=== PATIENT | female | born 1935 | race Hispanic/Latino ===

== ENCOUNTER 2016-12-18 13:57 | Observation (INO) | payer MEDICARE, OTHER ==
--- NOTE | 2016-12-18 14:43 | ED PDOC ---
Arrival/HPI - General Historian: Patient - History of Present Illness Time/Duration: Other (4 days ) Symptom Onset: Sudden Symptom Course: Worsening Quality: Burning Severity Level: Moderate <Darlene Wang - Last Filed: 12/18/16 16:57> <KristalDianelys - Last Filed: 12/18/16 17:51> - General Chief Complaint: Upper Extremity Problem/Injury Time Seen by Provider: 12/18/16 14:17 - History of Present Illness Narrative History of Present Illness (Text): 12/18/16 14:38 Patient is an 81 y/o with pmh of htn, hypothyroidism, falls, neuropathy and carpal tunnel syndrome presenting with right hand pain and swelling. Patient states she had carpal tunnel syndrome of the right hand for years, on Friday she noticed the right hand was swollen, she decided to wrap it with warm castor oil compress, and she fell asleep. Then the next morning she noticed the swelling of the right hand got worst, and it was burning. Patient called PMD, and was prescribed cefadroxil. Patient states she took the antibiotic for 2 days with no improvement thus she decided to come to the ED. Patient didn't try any pain meds at home. Patient otherwise denies cp, sob, n/v/d. (Darlene Wang) Past Medical History - Provider Review Nursing Documentation Reviewed: Yes - Travel History Have you recently traveled outside [place] w/in the past 3 mons?: No - Infectious Disease Hx of Infectious Diseases: None - Tetanus Immunization Tetanus Immunization: Unknown - Cardiac Hx Cardiac Disorders: Yes (CAD,NC,PALPITATIONS) Hx Cardiac Arrhythmia: Yes - Pulmonary Hx Respiratory Disorders: Yes Hx Asthma: Yes Hx Pneumonia: Yes - Neurological Hx Neurological Disorder: Yes (NEUROPATHY) - HEENT Hx HEENT Disorder: Yes (WEARS RX GLASSES) Hx Cataracts: Yes (WITH SURGERY) - Renal Hx Renal Disorder: No - Endocrine/Metabolic Hx Endocrine Disorders: Yes Hx Hypothyroidism: Yes - Hematological/Oncological Hx Blood Disorders: No - Integumentary Hx Dermatological Disorder: No - Musculoskeletal/Rheumatological Hx Musculoskeletal Disorders: Yes Hx Falls: Yes (LAST FALL THIS YR JUL 2013) - Gastrointestinal Hx Gastrointestinal Disorders: Yes Hx Gastrointestinal Ulcer: Yes - Genitourinary/Gynecological Hx Genitourinary Disorders: Yes (URINARY FREQUENCY, X1) Hx Urinary Tract Infection: Yes - Psychiatric Hx Psychophysiologic Disorder: Yes Hx Depression: Yes Hx Emotional Abuse: No Hx Physical Abuse: No Hx Substance Use: No - Surgical History Hx Appendectomy: Yes Hx Cardiac Catheterization: Yes - Anesthesia Hx Anesthesia: Yes Hx Anesthesia Reactions: No Hx Malignant Hyperthermia: No - Suicidal Assessment Feels Threatened In Home Enviroment: No <Darlene Wang - Last Filed: 12/18/16 16:57> Family/Social History - Physician Review Nursing Documentation Reviewed: Yes Family/Social History: No Known Family HX Smoking Status: Never Smoked Hx Alcohol Use: No Hx Substance Use: No Hx Substance Use Treatment: No <Darlene Wang - Last Filed: 12/18/16 16:57> Allergies/Home Meds <Darlene Wang - Last Filed: 12/18/16 16:57> <Dianelys Giraldo - Last Filed: 12/18/16 17:51> Allergies/Adverse Reactions: Allergies diltiazem Allergy (Verified 12/18/16 14:15) ANAPHYLAXIS metoprolol Allergy (Verified 12/18/16 14:15) ANAPHYLAXIS Home Medications: Home Meds Medication Instructions Recorded Confirmed Levothyroxine Sodium 0.075 mg PO DAILY 02/19/12 12/18/16 [Levothyroxine] Aspirin [Aspirin Chewable] 81 mg PO DAILY 12/18/16 12/18/16 Cefadroxil [Duricef] 500 mg PO BID 12/18/16 12/18/16 Review of Systems - Review of Systems Constitutional: Normal Eyes: Normal ENT: Normal Respiratory: Normal Cardiovascular: Normal Gastrointestinal: Normal Genitourinary Female: Normal Musculoskeletal: Other (right hand pain, and burning. ) Skin: Rash Neurological: Normal Endocrine: Normal Hemo/Lymphatic: Normal Psychiatric: Normal <Darlene Wang - Last Filed: 12/18/16 16:57> Physical Exam Vital Signs Reviewed: Yes Temperature: Afebrile Blood Pressure: Normal Pulse: Regular Respiratory Rate: Normal Appearance: Positive for: Well-Appearing, Non-Toxic, Comfortable Pain Distress: None Mental Status: Positive for: Alert and Oriented X 3 - Systems Exam Head: Present: Atraumatic, Normocephalic Conjunctiva: No: Icteric Mouth: Present: Moist Mucous Membranes Neck: Present: Normal Range of Motion Respiratory/Chest: Present: Clear to Auscultation, Good Air Exchange. No: Respiratory Distress, Accessory Muscle Use, Wheezes, Rales, Rhonchi, Tachypneic Cardiovascular: Present: Regular Rate and Rhythm, Normal S1, S2. No: Murmurs, Peripheal Pulses Present, Tachycardic, Bradycardic, Rub, Gallop Abdomen: Present: Normal Bowel Sounds. No: Tenderness, Distention Upper Extremity: Present: Edema (of the right hand, mostly on the dorsal apsect of the hand. ), Tenderness (right hand), Swelling (right hand), Neurovascularly Intact, Capillary Refill < 2s. No: Erythema (mild) Lower Extremity: Present: Normal Inspection. No: Edema Neurological: Present: GCS=15 Skin: Present: Warm, Dry, Rashes, Normal Color Psychiatric: Present: Alert, Oriented x 3, Normal Insight, Normal Concentration <Darlene Wang - Last Filed: 12/18/16 16:57> Medical Decision Making Re-evaluation Time: 16:50 Reassessment Condition: Re-examined, Improving,but remains with symptoms - Lab Interpretations I have reviewed the lab results: Yes <Darlene Wang - Last Filed: 12/18/16 16:57> <Dianelys Giraldo - Last Filed: 12/18/16 17:51> ED Course and Treatment: 12/18/16 14:47 Patient is an 81 y/o with pmh of htn, hypothyroidism presenting with right hand tenderness, and edema. Differentials: gout versus cellulites versus trauma versus pseudogout. Plan: cbc, cmp, bcx, uric acid. Stat dose po prednisone, Discussed with Dr giraldo. 12/18/16 16:57 Right hand x-ray with no fractures. Dr giraldo spoke to Dov Nino, patient is to be admitted with right hand cellulites, and IV antibiotics. (Darlene Wang) Patient Seen With Resident: In agreement with resident note. Patient was seen and evaluated with resident, came up with plan and treatment together. An 81 year old female with right hand pain and swelling. Additional HPI as noted by resident. On physical exam, patient has right hand tenderness, swelling , and edema (mostly dorsal aspect), no mild erythema and neurovascularly intact. Ordered radiology of right hand and labs. Vitaliy give patient prednisone. 12/18/16 17:48 Patient with noted swelling with warmth and erythema with differential of cellulitis vs. gout; no evidence of burn. Patient with no history of gout, and already on duracef, concern is that patient has hand cellulitis that is worsening and not responding to oral antibioitics. Will start iv antibiotics and observe further in the hospital. Discussed with Dr. Rinku Lopez. (Dianelys Giraldo) - Lab Interpretations Lab Results: 12/18/16 14:50 12/18/16 14:50 Lab Results 12/18/16 14:50: Sodium 131 L, Potassium 4.8, Chloride 99, Carbon Dioxide 27, Anion Gap 10, BUN 25 H, Creatinine 0.6, Est GFR ( Amer) > 60, Est GFR ( Non-Af Amer) > 60, Random Glucose 98, Uric Acid 4.5, Calcium 9.9, Total Bilirubin 0.9, AST 78 H, ALT 90 H, Alkaline Phosphatase 78, Total Protein 6.6, Albumin 3.8, Globulin 2.8, Albumin/Globulin Ratio 1.4 12/18/16 14:50: WBC 5.6 D, RBC 4.07, Hgb 12.8, Hct 36.6, MCV 89.9, MCH 31.4, MCHC 35.0, RDW 12.8, Plt Count 107 L, MPV 10.2, Gran % 73.1 H, Lymph % (Auto) 11.1 L, Laurel % (Auto) 12.3 H, Eos % (Auto) 3.0, Baso % (Auto) 0.5, Gran # 4.08, Lymph # 0.6 L, Laurel # 0.7 H, Eos # 0.2, Baso # 0.03, ESR 26 H - RAD Interpretation Radiology Orders: 12/18/16 15:01 HAND RIGHT 3 VIEWS [RAD] Stat 12/18/16 16:55 CHEST PORTABLE [RAD] Stat - Medication Orders Current Medication Orders: Vancomycin HCl 1 gm/ Sodium (Chloride) 250 mls @ 133.333 mls/hr IV STAT STA PRN Reason: Protocol Stop: 12/18/16 18:40 Discontinued Medications Colchicine (Colocrys) 0.6 mg PO ONCE STA Stop: 12/18/16 16:19 Last Admin: 12/18/16 16:51 Dose: 0.6 mg Ampicillin Sodium/Sulbactam (Sodium 3 gm/ Sodium Chloride) 100 mls @ 100 mls/ hr IVPB STAT STA PRN Reason: Protocol Stop: 12/18/16 17:47 Last Admin: 12/18/16 17:33 Dose: 100 mls/hr Prednisone (Prednisone Tab) 40 mg PO STAT STA Stop: 12/18/16 14:36 Last Admin: 12/18/16 15:06 Dose: 40 mg <Darlene Wang - Last Filed: 12/18/16 16:57> - Scribe Statement The provider has reviewed the documentation as recorded by the Scribe <Dianelys Giraldo - Last Filed: 12/18/16 17:51> - Scribe Statement Go Rivera All medical record entries made by the Scribe were at my direction and personally dictated by me. I have reviewed the chart and agree that the record accurately reflects my personal performance of the history, physical exam, medical decision making, and the department course for this patient. I have also personally directed, reviewed, and agree with the discharge instructions and disposition. (Dianelys Giraldo) Disposition/Present on Arrival - Present on Arrival Any Indicators Present on Arrival: No History of DVT/PE: No History of Uncontrolled Diabetes: No Urinary Catheter: No History of Decub. Ulcer: No History Surgical Site Infection Following: None - Disposition Have Diagnosis and Disposition been Completed?: Yes Disposition Time: 17:00 Patient Plan: Observation <Darlene Wang - Last Filed: 12/18/16 16:57> - Disposition Disposition Time: 16:45 <Dianelys Giraldo - Last Filed: 12/18/16 17:51> - Disposition Diagnosis: Cellulitis of right hand Disposition: HOSPITALIZED Patient Problems: Current Active Problems Problem Status Onset Cellulitis of right hand Acute Condition: STABLE Discharge Instructions (ExitCare): Cellulitis (ED) Referrals: Dov Lopez MD [Primary Care Provider] - Follow up with primary
[2016-12-18 14:58] VITALS: BMI 17.9
[2016-12-18 15:06] LABS: ADD MANUAL DIFF? NO
[2016-12-18 15:12] LABS: BASO # 0.03 K/mm3 (0.0-2.0); BASO % 0.5 % (0.0-3.0); EOS # 0.2 (0.0-0.7); GRAN # 4.08 (1.4-6.5); GRAN % 73.1 % (50.0-68.0); HEMATOCRIT 36.6 % (36.0-48.0); LYMPH # 0.6 (1.2-3.4); LYMPH % 11.1 % (22.0-35.0); MEAN CELL VOLUME 89.9 fL (80.0-105.0); MEAN CORPUSCULAR HEMOGLOBIN 31.4 pg (25.0-35.0); MEAN PLATELET VOLUME 10.2 fl (7.0-11.0); MONO # 0.7 (0.1-0.6); MONO % 12.3 % (1.0-6.0); PLATELET COUNT 107 10^3/uL (120.0-450.0); RED CELL DISTRIBUTION WIDTH 12.8 % (11.5-14.5); WHITE BLOOD COUNT 5.6 10^3/ul (4.5-11.0)
[2016-12-18 15:21] LABS: ALB/GLOB RATIO 1.4 (1.1-1.8); ALKALINE PHOSPHATASE 78 U/L (38-133); ALT/SGPT 90 U/L (7-56); AST/SGOT 78 U/L (15-39); BILIRUBIN,TOTAL 0.9 mg/dL (0.2-1.3); BLOOD UREA NITROGEN 25 mg/dL (7-21); CALCIUM 9.9 mg/dL (8.4-10.5); CARBON DIOXIDE 27 mmol/L (21-33); CHLORIDE 99 mmol/L (98-107); GFR AFRICAN-AMERICAN > 60; GLUCOSE,RANDOM 98 mg/dL (70-110); POTASSIUM 4.8 mmol/L (3.6-5.0); SODIUM 131 mmol/L (132-148); TOTAL PROTEIN 6.6 g/dL (5.8-8.3); URIC ACID 4.5 mg/dL (2.5-6.2)
--- NOTE | 2016-12-18 16:01 | RAD ---
PROCEDURE: Right Hand Radiographs. HISTORY: Right hand pain and swelling COMPARISON: None. FINDINGS: BONES: There is no acute displaced fracture or bone destruction. Bone alignment is normal. 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 There is calcification in the triangular fibrocartilage with SOFT TISSUES: Normal. OTHER FINDINGS: None. IMPRESSION: No acute displaced fracture or dislocation.
[2016-12-18 16:16] LABS: ERYTHROCYTE SEDIMENTATION RATE 26 mm/hr (0.0-20.0)
[2016-12-18] MEDS ORDERED: Ampicillin/Sulbactam 3 GM in Sodium Chloride 0.9% 100 ML IVPB STA (16:48)
--- NOTE | 2016-12-19 10:11 | RAD ---
HISTORY: hand cellulitis COMPARISON: 03/09/2014 FINDINGS: LUNGS: The lungs are clear. PLEURA: No significant pleural effusion identified, no pneumothorax apparent. CARDIOVASCULAR: The heart is normal in size. OSSEOUS STRUCTURES: No significant abnormalities. VISUALIZED UPPER ABDOMEN: Normal. OTHER FINDINGS: None. IMPRESSION: No active pulmonary disease.
[2016-12-19] MEDS: Levothyroxine 75 MCG TAB PO SCH (10:29)
[2016-12-19] MEDS: ceFAZolin 1 gm in NS 1 GM/100 ML BAG IVPB SCH ×3 (10:56→21:53)
--- NOTE | 2016-12-19 13:46 | HP ---
CHIEF COMPLAINT: Swelling, pain and redness of the right hand. HISTORY OF PRESENT ILLNESS: This is an 81-year-old woman who complained that, approximately a week a go, her right hand started to bother her. She was treating it conservatively and the other day, appl ied a castor oil poultice to the hand. She meant to leave it on for only a few minutes, but fell asl eep and awoke the next morning. The hand was red and markedly swollen. She cared for it conservativ tesha at home, called her physician, Dr. Rinku Ivey, and was started on antibiotics. She took a few doses of antibiotics, but the redness and pain and swelling did not improve, so she presented to the Emergency Room where she was treated and evaluated. It was determined that this was clinically high ly suspicious of cellulitis and the patient was admitted to medical floor after antibiotics were star ariel. PAST MEDICAL HISTORY: Significant for hypothyroidism. No history of hypertension, diabetes, cholest michele, tuberculosis, asthma, seizures, coronary artery disease, new stroke, TIAs or cancers of any typ e. CURRENT MEDICATIONS: Include levothyroxine 75 mcg daily and baby aspirin 81 mg daily. SOCIAL HISTORY: She does not smoke, does not drink alcohol. REVIEW OF SYSTEMS: Otherwise unremarkable except for some minor arthritis symptoms, but negative for any dysuria symptoms or rheumatism or gout. PHYSICAL EXAMINATION: GENERAL: The patient was seen this morning, 12/19/2016, in room 374, bed 1. She was lying in bed, comfortable, and resting. HEAD AND NECK: Unremarkable. Conjunctivae pink. Mucous membranes moist. NECK: Supple without masses. Thyroid is not palpable. CHEST: Clear. HEART: Regular, nontachycardic. ABDOMEN: Soft. EXTREMITIES: Lower extremities show no swelling or edema. Dorsalis pedis and posterior tibial pulse s are present. On examination of the right upper extremity, the hand is markedly swollen and puffy. It is warm to touch and erythematous. She can flex the wrist without significant pain. IMPRESSION: 1. Cellulitis of the right, but must also consider just a chemical burn from castor oil versus aller gic reaction versus unrelated or rheumatologic etiology such as gout or acute tenosynovitis. 2. Hypothyroidism. 3. Daily aspirin use. PLAN: Because the white count is normal, I will check with infectious disease analytical consultant, start her on Ancef 1 gram q. 8 and see what the infectious disease analytical consultant has to say and also would use ant ibiotics overnight, reassess the situation in the morning. We will get morning labs, perhaps also ch lenka a sed rate and recheck the uric acid level. If the patient is deemed clinically well, stable, af ebrile, she may be ready for discharge as early as tomorrow morning, but that decision will have to b e determined at that time. Naresh Lopez MD cc: [id number] TT: 12/19/2016 13:45:39 tn
--- NOTE | 2016-12-19 22:38 | CON ---
DATE: 12/19/2016 The patient is in room 374, bed 1. Seen earlier today. The patient's son at the bedside. CHIEF COMPLAINT: Right wrist pain times several weeks. HISTORY OF PRESENT ILLNESS: This is an 81-year-old female with past medical history of hypothyroidism, hypertension, falls, neuropathy, carpal tunnel syndrome, cataract, who has had cataract surgery in the past. SHE IS ALLERGIC TO DILTIAZEM AND METOPROLOL. She was admitted with a diagnosis of a cellulitis of the hand. Infectious disease consultation requested. REVIEW OF SYSTEMS: The patient states that she has had the pain in her wrist for some time. She denies any trauma. No nausea or vomiting. No fevers and chills. No chest pain. PAST MEDICAL HISTORY: Significant for hypertension, hypothyroidism, a fall, neuropathy, carpal tunnel syndrome, and cataracts. PAST SURGICAL HISTORY: Significant for cataract surgery. ALLERGIES: THE PATIENT IS ALLERGIC TO DILTIAZEM AND METOPROLOL. MEDICATIONS AT HOME: Include levothyroxine and aspirin. PHYSICAL EXAMINATION: GENERAL: The patient is in bed with a temperature of 98. The patient appears much older than her stated age. She appears chronically ill, cachectic. VITAL SIGNS: Pulse of 57, blood pressure is 160/90, respiratory rate of 20. HEENT: Unremarkable. NECK: Supple. LUNGS: Have decreased breath sounds. HEART: Normal S1, S2. ABDOMEN: Soft, nontender. EXTREMITIES: Examination of the right wrist, there is obvious swelling, and it is tender; however, she is able to extend and flex her wrist joint. There is mild erythema of the wrist area, but no discharge and no break in the skin. LABORATORY EXAMINATION: Reveals a white count of 5.6, hemoglobin of 12. The platelets are low at 107, with a sed rate of 26. Chemistries reveal a BUN of 25 , creatinine of 0.6, AST 78, ALT is 90. C-reactive protein is greater than 15. Sodium is low at 131. The patient had a chest x-ray which was negative. Right hand x-ray, there were no fractures. History and physical examination by Dr. Evan Lopez is reviewed. The Emergency Room chart is reviewed. ASSESSMENT AND PLAN: This is an 81-year-old female with hypertension, hypothyroidism, falls, neuropathy, carpal tunnel syndrome, who was admitted with right wrist pain. Must rule out a right septic joint, although it does not appear toxic versus vasculitis, and patient does have low platelets. Thrombocytopenia, etiology of which is not clear. Recommend a heme evaluation for the low platelets. Repeat a CBC in a.m., blood cultures, urinalysis, urine culture. Will order GEOFF screen with titers and uric acid for possible gouty arthritis and marrero culture. Will also order a CAT scan of the right wrist to rule out any fluid in the wrist joint and start the patient empirically on vancomycin and ceftriaxone pending initial workup and results. recommnd ortho eval. Will follow closely with you. Barak Schofield MD cc: 350 TT: 12/19/2016 22:38:27 Confirmation # [id number] Dictation # [id number] dn MTDD
[2016-12-19] MEDS: Vancomycin 750mg 750 MG/250 ML BAG IVPB SCH (23:50)
--- NOTE | 2016-12-20 00:01 | CARD ---
APPROVED REPORT EKG Measurement Heart [id number] <Conclusion> Sinus bradycardia with 1st degree AV block Left ventricular hypertrophy with QRS widening T wave abnormality, consider inferior ischemia T wave abnormality, consider anterolateral ischemia Abnormal ECG
[2016-12-20 07:32] LABS: ADD MANUAL DIFF? NO
[2016-12-20 07:35] LABS: BASO # 0.04 K/mm3 (0.0-2.0); BASO % 1.3 % (0.0-3.0); EOS # 0.2 (0.0-0.7); EOS % 7.6 % (1.5-5.0); GRAN % 47.7 % (50.0-68.0); HEMATOCRIT 35.7 % (36.0-48.0); LYMPH # 1.1 (1.2-3.4); LYMPH % 33.8 % (22.0-35.0); MEAN CELL VOLUME 88.4 fL (80.0-105.0); MEAN CORPUSCULAR HEMOGLOBIN 30.4 pg (25.0-35.0); MEAN CORPUSCULAR HGB CONC 34.5 g/dl (31.0-37.0); MEAN PLATELET VOLUME 10.5 fl (7.0-11.0); MONO # 0.3 (0.1-0.6); MONO % 9.6 % (1.0-6.0); PLATELET COUNT 121 10^3/uL (120.0-450.0); RED CELL DISTRIBUTION WIDTH 12.5 % (11.5-14.5); WHITE BLOOD COUNT 3.1 10^3/ul (4.5-11.0)
[2016-12-20 07:54] LABS: BLOOD UREA NITROGEN 21 mg/dL (7-21); CARBON DIOXIDE 26 mmol/L (21-33); CHLORIDE 103 mmol/L (95-110); GFR AFRICAN-AMERICAN > 60; GLUCOSE,RANDOM 75 mg/dL (70-110); POTASSIUM 3.6 mmol/L (3.6-5.0); SODIUM 134 mmol/L (132-148); URIC ACID 4.2 mg/dL (2.5-6.2)
[2016-12-20] MEDS: Levothyroxine 75 MCG TAB PO SCH (08:40)
[2016-12-20] MEDS ORDERED: cefTRIAXone 1 gm 1 GM/100 ML BAG IVPB ONE (10:10)
--- NOTE | 2016-12-20 10:12 | PN ---
DATE: 12/20/2016 The patient is in bed, in no acute distress, nontoxic. PHYSICAL EXAMINATION: VITAL SIGNS: Temperature is 98, blood pressure is 120/70, respiratory rate of 18, heart rate of 60. HEENT: Unremarkable. NECK: Supple. LUNGS: Have decreased breath sounds. HEART: Normal S1, S2. ABDOMEN: Soft, nontender. LABORATORY DATA: Reveals the patient to have a white count of 3.1, hemoglobin of 12, platelets of 12 1 and a BUN of 21, creatinine of 0.5. C-reactive protein is greater than 15. Microbiology: Blood c ultures are negative. Chest x-ray: Lungs are clear. ASSESSMENT AND PLAN: An 81-year-old female with hypertension, hypothyroidism, history of falls, hist ory of neuropathy, carpal tunnel syndrome, admitted with a right wrist pain. I doubt septic joint. Currently on vancomycin and Rocephin. Awaiting for a CAT scan of the wrist. Recommend an orthopedic evaluation. Lyme serology cultures pending. The patient's platelet count this morning is 121; it w as 107. She does have an elevated C-reactive protein. Will follow with you. Barak Schofield MD cc: 350 TT: 12/20/2016 09:39:36 Confirmation # [id number] Dictation # [id number] mn
[2016-12-20] MEDS: cefTRIAXone 1 gm 1 GM/100 ML BAG IVPB SCH (10:17)
[2016-12-20] MEDS: Vancomycin 750mg 750 MG/250 ML BAG IVPB SCH ×2 (10:17→21:44)
--- NOTE | 2016-12-20 10:25 | CT ---
PROCEDURE: HISTORY: r/o right wrist joint fluid COMPARISON: None TECHNIQUE: Noncontrast radiation dose of 117 FINDINGS: Severe degenerative changes of the carpus is noted with joint space narrowing and marginal spur formation with fragmentation and spur formation. There is chondrocalcinosis of the main disc of the triangular fibrocartilage complex. No discrete fracture is observed. There is a small carpal joint effusion. The visualized tendons are grossly unremarkable. IMPRESSION: Markedly severe degenerative changes with chondrocalcinosis. Small joint effusion.
[2016-12-21 04:34] LABS: LYME DISEASE SCREEN <0.90 index
[2016-12-21] MEDS: Levothyroxine 75 MCG TAB PO SCH (08:12)
[2016-12-21] MEDS: cefTRIAXone 1 gm 1 GM/100 ML BAG IVPB SCH (10:02)
[2016-12-21] MEDS: Vancomycin 750mg 750 MG/250 ML BAG IVPB SCH (10:18)
--- NOTE | 2016-12-21 18:05 | PN ---
DATE: 12/21/2016 The patient is in bed in no acute distress, nontoxic. The patient states her wrist is much improved and she is doing much better. PHYSICAL EXAMINATION: VITAL SIGNS: Temperature is 98, blood pressure is 160/90, respiratory rate of 16. HEENT: Unremarkable. NECK: Supple. LUNGS: Have decreased breath sounds. HEART: Normal S1, S2. ABDOMEN: Soft, nontender. LABORATORY DATA: Reveals a white count is 3.1, hemoglobin of 12 and platelets of 121, Sed rate is 2 6. Chemistries are noted. C-reactive protein is greater than 15. Lyme serology is negative. Hepat itis profile is negative. Microbiology reveals her urine culture and blood cultures are negative. T he patient's CAT scan of the arm: Severe degenerative changes with chondrocalcinosis and a small eff usion is noted. Review of orders revealed the patient to be on ceftriaxone and vancomycin. ASSESSMENT AND PLAN: An 81-year-old female with hypertension, hypothyroidism, history of falls, hist ory of neuropathy, carpal tunnel syndrome, admitted with right wrist pain, negative CAT scan and cult ures negative. Lyme serology and hepatitis serology are negative. We will discontinue the IV vancom ycin and on ceftriaxone. Complete with p.o. doxycycline, although the Lyme screen is negative, 100 m g of doxycycline p.o. b.i.d. x 3 days. Barak Schofield MD cc: 350 TT: 12/21/2016 18:04:21 Confirmation # [id number] Dictation # [id number] mn
[2016-12-22] MEDS: Levothyroxine 75 MCG TAB PO SCH (07:30)
[2016-12-22 09:06] VITALS: BP 159/82; PULSE 54; RESP 17; TEMP 97.7; O2SAT 96
--- NOTE | 2016-12-22 13:19 | PN ---
DATE: 12/22/2016 The patient is in bed, in no acute distress, nontoxic. PHYSICAL EXAMINATION: VITAL SIGNS: Temperature is 97, blood pressure is 150/80, respiratory rate of 16. HEENT: Unremarkable. NECK: Supple. LUNGS: Have decreased breath sounds. HEART: Normal S1, S2. ABDOMEN: Soft, nontender. LABORATORY EXAMINATION: Reveals a white count of 3.1, hemoglobin of 12, platelets of 121. The chemi stries reveals a BUN of 21, creatinine of 0.5. Serology is noted. Microbiology reveals the blood cu ltures are negative, urine cultures are negative and upper extremity ultrasound is noted. ASSESSMENT AND PLAN: An 81-year-old female with hypertension, hypothyroidism, history of falls, hist ory of neuropathy, carpal tunnel syndrome. Admitted with right wrist pain and Lyme serology is negat jeremy. Currently on p.o. doxycycline. Would complete 100 mg p.o. b.i.d. for 2 more days. The patient was seen earlier, doing well. Barak Schofield MD cc: 350 TT: 12/22/2016 13:18:14 Confirmation # [id number] Dictation # [id number]
== END 2016-12-22 15:04 | disposition home or self-care (01) ==
LOC: ED 13:57 → ERH 16:49 → 3RSO 20:04
PROVIDERS: ADMIT Internal Medicine; ATTEND Internal Medicine
DX: L03.113 Cellulitis of right upper limb (principal); G56.01 Carpal tunnel syndrome, right upper limb; I10 Essential (primary) hypertension; E03.9 Hypothyroidism, unspecified; D69.6 Thrombocytopenia, unspecified; R79.82 Elevated C-reactive protein (CRP); G62.9 Polyneuropathy, unspecified; Z91.81 History of falling; Z79.82 Long term (current) use of aspirin
CPT/HCPCS: 36415; 71010; 73130; 73200; 80048; 80053; 80074; 84550; 85025; 85651; 86039; 86140; 86618; 87040; 87086; 93005; 96365; 96366; 96367; 96368; 96375; 96376; 97116; 97161; 99285; G0378; G8978; G8979; J0295; J0690; J0696

== ENCOUNTER 2017-03-24 12:24 | Emergency (ER) | payer MEDICARE, OTHER ==
[2017-03-24 12:35] VITALS: BMI 17.9
[2017-03-24 12:49] VITALS: TEMP 98.7
--- NOTE | 2017-03-24 13:14 | ED PDOC ---
Arrival/HPI <Gualberto Ghotra - Last Filed: 03/24/17 15:33> - General Historian: Patient EM Caveat: Acuity of Condition - History of Present Illness Time/Duration: 1-3 hours Symptom Course: Unchanged Quality: Aching Severity Level: 4 Context: Walking, Slipped <MARI PINEDA - Last Filed: 03/24/17 22:05> - General Chief Complaint: Trauma - History of Present Illness Narrative History of Present Illness (Text): 03/24/17 13:07 81yo F PMH prior falls, SD (1985), Hypothyroid, LE numbness/cold and colon polyps who presents to ED BIBA s/p mechanical fall at around 10AM this morning. Pt states she was walking in the kitchen and she fell over on her R side and hit her eye/head on the ground. Pt has a Rolling Walker and a cane that she should be using but she doesn't. Pt has had unsteady gait for a few years and has had multiple falls with admissions to rehab facilities, and does complain of weakness. Pt denies dizziness, LOC, chest pain, cough, n/v or urinary/stool incontinence. Pt has a necklace monitor to call 911 in case of falls, however, she did not use it and instead got off the floors after a few minutes and dialed 911 herself. Son also came and helped, but he doesn't live with her. PMD: Dr. Dov Lopez PSH: appendectomy, c/s x1 Meds: as per AUG SHx: lives alone, denies tobacco, ETOH or substance use FHx: non-contributory 03/24/17 13:15 (MARI PINEDA) Past Medical History <Gualberto Ghotra - Last Filed: 03/24/17 15:33> - Provider Review Nursing Documentation Reviewed: Yes - Infectious Disease Hx of Infectious Diseases: None - Tetanus Immunization Tetanus Immunization: Unknown - Cardiac Hx Cardiac Disorders: Yes ([place], PALPITATIONS) - Pulmonary Hx Respiratory Disorders: Yes Hx Asthma: Yes Hx Pneumonia: Yes - Neurological Hx Neurological Disorder: Yes (NEUROPATHY) - HEENT Hx HEENT Disorder: Yes Hx Cataracts: Yes (2011 BILATERAL SURGERY) - Renal Hx Renal Disorder: Yes Hx Kidney Stones: Yes (LEFT KIDNEY STONES) - Endocrine/Metabolic Hx Hypothyroidism: Yes - Hematological/Oncological Hx Blood Disorders: Yes Hx Anemia: Yes Hx Cancer: Yes (COLON CA 30YEARS AGO) Hx Chemotherapy: No - Integumentary Hx Dermatological Disorder: No - Musculoskeletal/Rheumatological Hx Musculoskeletal Disorders: Yes Hx Back Pain: Yes (DISLOCATED VERTEBRAE LOWER BACK) Hx Falls: Yes Hx Unsteady Gait: Yes - Gastrointestinal Hx Gastrointestinal Disorders: Yes - Genitourinary/Gynecological Hx Genitourinary Disorders: Yes Hx Urinary Tract Infection: Yes - Psychiatric Hx Psychophysiologic Disorder: Yes Hx Anxiety: Yes Hx Depression: Yes Hx Substance Use: No - Surgical History Hx Appendectomy: Yes Hx Cardiac Catheterization: No (DENIES) Hx Section: Yes - Anesthesia Hx Anesthesia: Yes Hx Anesthesia Reactions: No Hx Malignant Hyperthermia: No - Suicidal Assessment Feels Threatened In Home Enviroment: No <MARI PINEDA - Last Filed: 03/24/17 22:05> - Patient History Narrative Patient History: prior hx of falls (MARI PINEDA) Family/Social History - Physician Review Nursing Documentation Reviewed: Yes Family/Social History: No Known Family HX Smoking Status: Never Smoked Hx Alcohol Use: No Hx Substance Use: No Hx Substance Use Treatment: No <MARI PINEDA - Last Filed: 03/24/17 22:05> Allergies/Home Meds <Gualberto Ghotra - Last Filed: 03/24/17 15:33> <MARI PINEDA - Last Filed: 03/24/17 22:05> Allergies/Adverse Reactions: Allergies diltiazem Allergy (Verified 12/18/16 14:15) ANAPHYLAXIS metoprolol Allergy (Verified 12/18/16 14:15) ANAPHYLAXIS Home Medications: Home Meds Medication Instructions Recorded Confirmed Levothyroxine Sodium 0.075 mg PO DAILY 02/19/12 03/24/17 Aspirin [Aspirin Chewable] 81 mg PO QOTHERDAY 12/18/16 03/24/17 Gabapentin [Neurontin] 1 cap PO BID 03/24/17 03/24/17 Review of Systems - Physician Review All systems were reviewed & negative as marked: Yes - Review of Systems Respiratory: Normal Cardiovascular: Normal Gastrointestinal: Normal Musculoskeletal: Other (abnormal gait). absent: Back Pain, Neck Pain, Myalgias Neurological: absent: Headache, Dizziness, Focal Weakness, Facial Droop, Seizure <MARI PINEDA - Last Filed: 03/24/17 22:05> Physical Exam Vital Signs Reviewed: Yes Appearance: Positive for: Well-Appearing, Comfortable Pain Distress: None Mental Status: Positive for: Alert and Oriented X 3 - Systems Exam Head: Present: Tenderness (supra-optical ), Contusion (above R eye), Ecchymosis (above R eye). No: Abrasion, Laceration Pupils: Present: PERRL Extroacular Muscles: Present: EOMI Conjunctiva: Present: Normal Mouth: Present: Moist Mucous Membranes Nose (External): Present: Atraumatic Nose (Internal): Present: Normal Inspection, No Active Bleeding. No: Septal Deviation Neck: Present: Normal Range of Motion. No: MIDLINE TENDERNESS, Paraspinal Tenderness Respiratory/Chest: Present: Clear to Auscultation, Good Air Exchange. No: Wheezes Cardiovascular: Present: Regular Rate and Rhythm, Normal S1, S2 Abdomen: No: Tenderness, Distention Back: Present: Normal Inspection. No: Midline Tenderness, Pain with Leg Raise Upper Extremity: Present: Normal Inspection, Normal ROM, NORMAL PULSES. No: Tenderness Lower Extremity: Present: Normal Inspection, Normal ROM. No: Edema <MARI PINEDA - Last Filed: 03/24/17 22:05> Vital Signs Temp Pulse Resp BP Pulse Ox 03/24/17 16:07 56 L 12 157/75 H 98 03/24/17 15:31 52 L 18 177/88 H 99 03/24/17 12:38 98.7 F 60 19 112/72 99 Medical Decision Making - RAD Interpretation Handstitching Machine Armhole Feller: ED Physician <Gualberto Ghotra - Last Filed: 03/24/17 15:33> <MARI PINEDA - Last Filed: 03/24/17 22:05> ED Course and Treatment: Patient Seen With Resident: In agreement with resident note which contains more details about the patient. Patient was seen and evaluated with resident. Came up with plan and treatment together. 03/24/17 13:37 Seen and examined with the resident. Our history and physical exam reveals an elderly woman who suffered a mechanical fall at home in her kitchen with a right forehead injury. No loss of consciousness syncope dizziness lightheadedness numbness tingling or paresthesias. No nausea or vomiting. No neck pain. No extremity trauma. No chest pain palpitations or dyspnea. There is ecchymosis and swelling of the right eyebrow. Extraocular muscles intact. Pupils equal round reactive to light. No infraorbital rim tenderness swelling or ecchymosis. 03/24/17 14:17 Patient was getting ready for discharge, and complained of right sided anterior chest pain when she touched it. She does have some mild tenderness to palpation on her anterior upper ribs. No swelling. No crepitus. No ecchymosis. Rib and chest x-ray has been ordered. (Gualberto Ghotra) 03/24/17 13:25 Impression: 81yo F PMH falls presents with R eye contusion s/p mechanical fall Differential Diagnosis included but are not limited to: Head trauma Plan: -- Reassess and disposition - CT Head w/o contrast Progress Notes: 03/24/2017 13:52:42 CT Head w/o contrast Creator : Cole Crystal MD IMPRESSION: No acute intracranial hemorrhage. Significant confluent white matter basal nuclei and suspected chronic brainstem ischemic changes. . Moderate volume loss. Right facial soft tissue swelling as outlined above. Mucoperiosteal inflammatory changes within the maxillary ethmoid and sphenoid sinuses. Sclerotic underpneumatized appearance of the right mastoid air complex with opacification of several right-sided inferior mastoid air cells. Pt to be d/c with son, and recommended to continue rest, ice and pain management with tylenol PRN (MARI PINEDA) - RAD Interpretation Radiology Orders: 03/24/17 13:03 HEAD W/O CONTRAST [CT] Stat 03/24/17 14:16 RIBS RIGHT & PA CHEST [RAD] Stat RIBS and chest one view show no infiltrate effusion cardiomegaly pneumothorax fracture or dislocation (Gualberto Ghotra) Disposition/Present on Arrival <Gualberto Ghotra - Last Filed: 03/24/17 15:33> - Present on Arrival Any Indicators Present on Arrival: No History of DVT/PE: No History of Uncontrolled Diabetes: No Urinary Catheter: No History of Decub. Ulcer: No History Surgical Site Infection Following: None - Disposition Have Diagnosis and Disposition been Completed?: Yes Disposition Time: 14:09 <MARI PINEDA - Last Filed: 03/24/17 22:05> - Disposition Diagnosis: Fall Disposition: HOME/ ROUTINE Condition: IMPROVED Additional Instructions: d/c to home continue to rest and use ice pack on your R eye take motrin or tylenol as needed for pain Referrals: Dov Lopez MD [Primary Care Provider] - Follow up with primary Forms: [employer] (Kyrgyz)
--- NOTE | 2017-03-24 13:54 | CT ---
PROCEDURE: Comparison made with CT scan brain dated 03/09/2014 HISTORY: s/p fall COMPARISON: Comparison made with CT scan of the brain 03/09/2014. TECHNIQUE: Axial computed tomography images were obtained through the head/brain without intravenous contrast. Radiation dose: Total exam DLP = 677.45 mGy-cm. This CT exam was performed using one or more of the following dose reduction techniques: Automated exposure control, adjustment of the mA and/or kV according to patient size, and/or use of iterative reconstruction technique. FINDINGS: HEMORRHAGE: No intracranial hemorrhage. BRAIN: Significant diffuse/confluent chronic white matter ischemic changes seen extending peripherally into the deep and subcortical white matter both cerebral hemispheres. . There is extension of these changes into white matter tracts of both basal nuclei. Multiple more discrete deep and subcortical white matter as well as bilateral basal nuclei lacunar type infarcts also felt present. . Suspected chronic brainstem ischemic changes on prior study less well seen on this exam. Moderate generalized volume loss. Mild vascular calcifications both carotid siphons VENTRICLES: No obstructive hydrocephalus CALVARIUM: No acute calvarial fractures. Right periorbital soft tissue swelling that extends medially over bridge of the nose and glabella region as well as laterally over the lateral orbital rim and over proximal aspect right zygomatic arch. . Swelling extends superiorly into the supraorbital and frontal scalp region. PARANASAL SINUSES: Mucoperiosteal inflammatory changes are seen within the maxillary, and to a lesser degree ethmoid and sphenoid sinus. MASTOID AIR CELLS: Right mastoid air complex is underpneumatized slightly sclerotic compared to the left side. There also appears be partial opacification of multiple right-sided inferior mastoid air cells. OTHER FINDINGS: Changes of bilateral cataract surgery. IMPRESSION: No acute intracranial hemorrhage. Significant confluent white matter basal nuclei and suspected chronic brainstem ischemic changes. . Moderate volume loss. Right facial soft tissue swelling as outlined above. Mucoperiosteal inflammatory changes within the maxillary ethmoid and sphenoid sinuses. Sclerotic underpneumatized appearance of the right mastoid air complex with opacification of several right-sided inferior mastoid air cells.
[2017-03-24 16:08] VITALS: BP 157/75; PULSE 56; RESP 12; O2SAT 98
--- NOTE | 2017-03-24 16:52 | RAD ---
PROCEDURE: Chest x-ray and right rib series dated 03/24/2017 HISTORY: Trauma COMPARISON: Comparison made with chest radiograph 12/18/2016 TECHNIQUE: Frontal radiograph of the chest and multiple oblique radiographs of the right ribs were obtained. FINDINGS: RIGHT RIBS: Suspect fracture right posterolateral 5th rib LUNGS: No focal consolidation. PLEURA: No evidence of obvious pneumothorax. No pleural effusion CARDIOVASCULAR: Heart appears borderline/mildly enlarged OTHER FINDINGS: None. IMPRESSION: There appears to be a fracture of the right posterolateral 5th rib. No definitive evidence of pneumothorax Followup CT scan could be performed for further evaluation necessary
== END 2017-03-24 16:07 | disposition home or self-care (01) ==
LOC: ED 12:24
DX: Z04.3 Encounter for examination and observation following other accident (principal); W01.0XXA Fall on same level from slipping, tripping and stumbling without subsequent striking against object, initial encounter; Y93.01 Activity, walking, marching and hiking; Y92.000 Kitchen of unspecified non-institutional (private) residence as the place of occurrence of the external cause

== ENCOUNTER 2018-08-28 20:39 | Emergency (ER) | payer MEDICARE ==
[2018-08-28 20:39] VITALS: BMI 17.9
--- NOTE | 2018-08-28 21:31 | ED PDOC ---
Arrival/HPI <Parveen Rendon - Last Filed: 08/29/18 00:21> - General Historian: Patient - History of Present Illness Narrative History of Present Illness (Text): 08/28/18 21:31 Kaila Negron is an 83 year old female, whose past medical history includes hypothyroidism, hypertension, and neuropathy, who presents to the Emergency department complaining of left lower leg swelling with associated pain for 1 week. Patient denies any trauma/injury, chest pain, shortness of breath, fever, or any other complaints. <Galilea Norton PA-C - Last Filed: 08/29/18 01:57> - General Chief Complaint: Lower Extremity Problem/Injury Time Seen by Provider: 08/28/18 20:45 Past Medical History - Provider Review Nursing Documentation Reviewed: Yes - Infectious Disease Hx of Infectious Diseases: None - Tetanus Immunization Tetanus Immunization: Unknown - Cardiac Hx Cardiac Disorders: Yes ([place], PALPITATIONS) - Pulmonary Hx Respiratory Disorders: Yes Hx Asthma: Yes Hx Pneumonia: Yes - Neurological Hx Neurological Disorder: Yes (NEUROPATHY) - HEENT Hx HEENT Disorder: Yes Hx Cataracts: Yes (2012 BILATERAL SURGERY) - Renal Hx Renal Disorder: Yes Hx Kidney Stones: Yes (LEFT KIDNEY STONES) - Endocrine/Metabolic Hx Hypothyroidism: Yes - Hematological/Oncological Hx Blood Disorders: Yes Hx Anemia: Yes Hx Cancer: Yes (COLON CA 30YEARS AGO) Hx Chemotherapy: No - Integumentary Hx Dermatological Disorder: No - Musculoskeletal/Rheumatological Hx Musculoskeletal Disorders: Yes Hx Back Pain: Yes (DISLOCATED VERTEBRAE LOWER BACK) Hx Falls: Yes Hx Unsteady Gait: Yes - Gastrointestinal Hx Gastrointestinal Disorders: Yes - Genitourinary/Gynecological Hx Genitourinary Disorders: Yes Hx Urinary Tract Infection: Yes - Psychiatric Hx Psychophysiologic Disorder: Yes Hx Anxiety: Yes Hx Depression: Yes Hx Substance Use: No - Surgical History Hx Appendectomy: Yes Hx Cardiac Catheterization: No (DENIES) Hx Section: Yes - Anesthesia Hx Anesthesia: Yes Hx Anesthesia Reactions: No Hx Malignant Hyperthermia: No - Suicidal Assessment Feels Threatened In Home Enviroment: No <Galilea Norton PA-C - Last Filed: 08/29/18 01:57> Family/Social History - Physician Review Nursing Documentation Reviewed: Yes Family/Social History: Unknown Family HX Smoking Status: Never Smoked Hx Alcohol Use: No Hx Substance Use: No Hx Substance Use Treatment: No <Galilea Norton PA-C - Last Filed: 08/29/18 01:57> Allergies/Home Meds <Parveen Rendon - Last Filed: 08/29/18 00:21> <Galilea Norton PA-C - Last Filed: 08/29/18 01:57> Allergies/Adverse Reactions: Allergies diltiazem Allergy (Verified 08/28/18 20:51) ANAPHYLAXIS metoprolol Allergy (Verified 08/28/18 20:51) ANAPHYLAXIS Home Medications: Home Meds Medication Instructions Recorded Confirmed Levothyroxine Sodium 0.075 mg PO DAILY 02/19/12 03/24/17 Aspirin [Aspirin Chewable] 81 mg PO QOTHERDAY 12/18/16 03/24/17 Gabapentin [Neurontin] 1 cap PO BID 03/24/17 03/24/17 Review of Systems - Physician Review All systems were reviewed & negative as marked: Yes - Review of Systems Constitutional: Normal. absent: Fevers Eyes: Normal ENT: Normal Respiratory: Normal. absent: SOB, Cough Cardiovascular: Calf Pain (+left calf swelling). absent: Chest Pain Gastrointestinal: Normal. absent: Abdominal Pain, Diarrhea, Nausea, Vomiting Genitourinary Female: Normal. absent: Dysuria, Frequency, Hematuria, Urine Output Changes Musculoskeletal: Normal. absent: Back Pain, Neck Pain Skin: Normal. absent: Rash Neurological: Normal. absent: Headache, Dizziness Endocrine: Normal Hemo/Lymphatic: Normal Psychiatric: Normal <Galilea Norton PA-C - Last Filed: 08/29/18 01:57> Physical Exam Vital Signs Temp Pulse Resp BP Pulse Ox 08/28/18 21:05 97.9 F 60 18 161/78 H 98 <Parveen Rendon - Last Filed: 08/29/18 00:21> Vital Signs Reviewed: Yes Vital Signs Temp Pulse Resp BP Pulse Ox 08/28/18 21:05 97.9 F 60 18 161/78 H 98 Temperature: Afebrile Blood Pressure: Normal Pulse: Regular Respiratory Rate: Normal Appearance: Positive for: Well-Appearing, Non-Toxic, Comfortable Pain Distress: None Mental Status: Positive for: Alert and Oriented X 3 - Systems Exam Head: Present: Atraumatic, Normocephalic Pupils: Present: PERRL Extroacular Muscles: Present: EOMI Conjunctiva: Present: Normal Mouth: Present: Moist Mucous Membranes Neck: Present: Normal Range of Motion Respiratory/Chest: Present: Clear to Auscultation, Good Air Exchange. No: Respiratory Distress, Accessory Muscle Use Cardiovascular: Present: Regular Rate and Rhythm, Normal S1, S2. No: Murmurs Abdomen: No: Tenderness, Distention, Peritoneal Signs Back: Present: Normal Inspection Upper Extremity: Present: Normal Inspection. No: Cyanosis, Edema Lower Extremity: Present: NORMAL PULSES, Swelling (Swollen left calf), Neurovascularly Intact, Capillary Refill < 2 s. No: Edema (No pitting edema), Cyanosis, Tenderness (No tenderness to left calf), Erythema (No erythema to left calf) Neurological: Present: GCS=15, CN II-XII Intact, Speech Normal Skin: Present: Warm, Dry, Normal Color. No: Rashes Psychiatric: Present: Alert, Oriented x 3, Normal Insight, Normal Concentration <Galilea Norton PA-C - Last Filed: 08/29/18 01:57> Medical Decision Making - Lab Interpretations Lab Results: PT 11.7 SECONDS (9.4-12.5) 08/28/18 21:52 INR 1.05 08/28/18 21:52 APTT 30.1 Seconds (26.9-38.3) 08/28/18 21:52 NT-Pro-B Natriuret Pep 436 pg/mL (0-450) 08/28/18 21:52 Total Bilirubin 0.3 mg/dL (0.2-1.3) 08/28/18 21:52 AST 127 U/L (14-36) H D 08/28/18 21:52 ALT 134 U/L (7-56) H 08/28/18 21:52 Alkaline Phosphatase 97 U/L (38-126) 08/28/18 21:52 Total Protein 6.9 g/dL (5.8-8.3) 08/28/18 21:52 Albumin 4.0 g/dL (3.0-4.8) 08/28/18 21:52 Globulin 2.9 gm/dL 08/28/18 21:52 Albumin/Globulin Ratio 1.4 (1.1-1.8) 08/28/18 21:52 - RAD Interpretation Radiology Orders: 08/28/18 21:31 CHEST PORTABLE [RAD] Stat DUPLEX LOWER EXTRM VEIN LEFT [US] Stat <Parveen Rendon - Last Filed: 08/29/18 00:21> ED Course and Treatment: 08/28/18 21:31 Impression: 83 year old female complaining of left calf swelling. Plan: -- US Duplex Lower Extremities -- EKG -- Chest X-ray -- Labs, BNP -- Reassess and disposition Prior Visits: Notes and results from previous visits were reviewed. Progress Notes: 08/29/18 00:44 UD doppler : (-) DVT CXR : NAD EKG : SB at 53 bpm with first degree AVB, T wave inversions noted to leads V3-V6 which is not new and seen in prior EKGs. Labs reviewed : bnp wnl. On reevaluation, patient sleeping comfortably, but arouses easily, in no acute distress. She is asking for tylenol for her knee pain. Given tylenol po. Results d/w the patient. Advised to follow up with primary care physician in 1-2 days without fail. eturn to the emergency room at any time for any new or worsening symptoms. Patient states she fully agrees with and understands discharge instructions. States that she agrees with the plan and disposition. Verbalized and repeated discharge instructions and plan. I have given the patient opportunity to ask any additional questions. <Galilea Norton PA-C - Last Filed: 08/29/18 01:57> - PA / FILM PRINTER / Resident Statement AMBROSIO has reviewed & agrees with the documentation as recorded. AMBROSIO has examined the patient and agrees with the treatment plan. <Parveen Rendon - Last Filed: 08/29/18 00:21> - PA / FILM PRINTER / Resident Statement AMBROSIO has reviewed & agrees with the documentation as recorded. - Scribe Statement The provider has reviewed the documentation as recorded by the Seda Lobo Provider Scribe Attestation: All medical record entries made by the Scribe were at my direction and personally dictated by me. I have reviewed the chart and agree that the record accurately reflects my personal performance of the history, physical exam, medical decision making, and the department course for this patient. I have also personally directed, reviewed, and agree with the discharge instructions and disposition. <Galilea Norton PA-C - Last Filed: 08/29/18 01:57> Disposition/Present on Arrival <Parveen Rendon - Last Filed: 08/29/18 00:21> - Present on Arrival Any Indicators Present on Arrival: No History of DVT/PE: No History of Uncontrolled Diabetes: No Urinary Catheter: No History of Decub. Ulcer: No History Surgical Site Infection Following: None - Disposition Have Diagnosis and Disposition been Completed?: Yes Disposition Time: 00:45 Patient Plan: Discharge <Galilea Norton PA-C - Last Filed: 08/29/18 01:57> - Disposition Diagnosis: Leg edema, left Disposition: HOME/ ROUTINE Patient Problems: Current Active Problems Problem Status Onset Leg edema, left Acute Condition: STABLE Discharge Instructions (ExitCare): Dependent Edema (DC) Additional Instructions: Thank you for letting us take care of you today. You were treated for L leg edema. The emergency medical care you received today was directed at your acute symptoms. Return to the Emergency Department if your symptoms worsen, do not improve, or if you have any other problems. Please contact your doctor in 2 days for re-evaluation and follow up / or call one of the physicians/clinics you have been referred to that are listed on the Patient Visit Information form that is included in your discharge packet. Bring any paperwork you were given at discharge with you along with any medications you are taking to your follow up visit. Our treatment cannot replace ongoing medical care by a primary care provider (PCP) outside of the emergency department. Thank you for allowing the [facility] team to be part of your care today. If you had an X-Ray and US: A Radiologist will review the ED reading if any change in treatment is needed we will contact you. Referrals: Dov Lopez MD [Primary Care Provider] - Follow up with primary Forms: [employer] (German)
[2018-08-28 22:08] LABS: BASO # 0.05 K/mm3 (0.0-2.0); BASO % 1.7 % (0.0-3.0); EOS # 0.2 (0.0-0.7); EOS % 5.5 % (1.5-5.0); HEMOGLOBIN 12.4 g/dL (12.0-16.0); LYMPH # 0.7 (1.2-3.4); LYMPH % 25.2 % (22.0-35.0); MEAN CELL VOLUME 93.1 fl (80.0-105.0); MEAN CORPUSCULAR HEMOGLOBIN 31.5 pg (25.0-35.0); MEAN CORPUSCULAR HGB CONC 33.8 g/dl (31.0-37.0); MEAN PLATELET VOLUME 9.9 fl (7.0-11.0); MONO # 0.4 (0.1-0.6); MONO % 12.4 % (1.0-6.0); RBC 3.94 10^6/uL (3.5-6.1); RED CELL DISTRIBUTION WIDTH 12.9 % (11.5-14.5)
[2018-08-28 22:11] LABS: ALB/GLOB RATIO 1.4 (1.1-1.8); ALT/SGPT 134 U/L (7-56); AST/SGOT 127 U/L (14-36); BLOOD UREA NITROGEN 43 mg/dL (7-21); GFR NON-AFRICAN AMERICAN > 60; INR 1.05; PARTIAL THROMBOPLASTIN TIME 30.1 Seconds (26.9-38.3); PROTHROMBIN TIME 11.7 SECONDS (9.4-12.5)
[2018-08-28 22:20] LABS: B-TYPE NATRIURETIC PEPTIDE 436 pg/mL (0-450)
[2018-08-28 22:26] LABS: WHITE BLOOD COUNT 3.1 10^3/uL (4.5-11.0)
--- NOTE | 2018-08-29 10:01 | RAD ---
HISTORY: Swelling COMPARISON: Chest x-ray performed 03/24/17 TECHNIQUE: Chest, one view. FINDINGS: Examination limited by patient obliquity. Radiopaque device projects over the right lower chest limiting evaluation the underlying parenchyma. LUNGS: No focal consolidation. Please note that chest x-ray has limited sensitivity for the detection of pulmonary masses. PLEURA: No significant pleural effusion identified. No definite pneumothorax . CARDIOVASCULAR: Borderline cardiomegaly. Ectatic aorta. Atherosclerotic calcifications. OSSEOUS STRUCTURES: Degenerative changes. Osseous demineralization. VISUALIZED UPPER ABDOMEN: Unremarkable. OTHER FINDINGS: None. IMPRESSION: Limited study. Cardiomegaly. Ectatic aorta.
[2018-08-29 10:05] VITALS: BP 129/53; PULSE 85; RESP 20; TEMP 98; O2SAT 99
--- NOTE | 2018-08-30 07:48 | CARD ---
APPROVED REPORT Date of service: 08/28/2018 EKG Measurement Heart [id number] <Conclusion> Sinus bradycardia with 1st degree AV block Moderate voltage criteria for LVH, may be normal variant T wave abnormality, consider inferior ischemia T wave abnormality, consider anterolateral ischemia Abnormal ECG
--- NOTE | 2018-08-30 15:08 | US ---
PROCEDURE: Left lower extremity venous US HISTORY: Leg pain and swelling. Evaluate for DVT. PHYSICIAN(S): Hilario Titus MD. TECHNIQUE: Duplex sonography and color-flow Doppler with graded compression were used to evaluate the deep venous system of the left lower extremity. Evaluation of the tibial veins is somewhat limited by edema FINDINGS: The visualized deep venous system of the left lower extremity is sonographically normal and compressible. Normal wave forms and augmentation are seen. There is no sonographic evidence for deep venous thrombosis in the visualized segments of the left lower extremity. IMPRESSION: 1. No sonographic evidence for deep venous thrombosis in the visualized segments of the left lower extremity.
== END 2018-08-29 10:02 | disposition home or self-care (01) ==
LOC: ED 20:39
DX: R60.0 Localized edema (principal); I10 Essential (primary) hypertension; I25.2 Old myocardial infarction; Z85.038 Personal history of other malignant neoplasm of large intestine

== ENCOUNTER 2018-09-04 19:01 | Observation (INO) | payer MEDICARE ==
[2018-09-04 19:16] VITALS: BMI 17.3
[2018-09-04] MEDS ORDERED: Sodium Chloride 0.9% 1,000 ML IV STA (19:32)
[2018-09-04 19:41] LABS: BASO # 0.02 K/mm3 (0.0-2.0); BASO % 0.5 % (0.0-3.0); EOS # 0.1 (0.0-0.7); EOS % 2.6 % (1.5-5.0); HEMOGLOBIN 12.6 g/dL (12.0-16.0); LYMPH # 0.6 (1.2-3.4); MEAN CELL VOLUME 91.8 fl (80.0-105.0); MEAN CORPUSCULAR HEMOGLOBIN 31.3 pg (25.0-35.0); MEAN CORPUSCULAR HGB CONC 34.1 g/dl (31.0-37.0); MEAN PLATELET VOLUME 9.6 fl (7.0-11.0); MONO # 0.3 (0.1-0.6); MONO % 8.5 % (1.0-6.0); RBC 4.03 10^6/uL (3.5-6.1); RED CELL DISTRIBUTION WIDTH 12.6 % (11.5-14.5); WHITE BLOOD COUNT 3.9 10^3/uL (4.5-11.0)
--- NOTE | 2018-09-04 19:41 | ED PDOC ---
Arrival/HPI - General Chief Complaint: Dizziness/Lightheaded Time Seen by Provider: 09/04/18 19:06 Historian: Patient - History of Present Illness Narrative History of Present Illness (Text): 83 y/o F c PMHx hypothyroidism, hypertension, and neuropathy p/w headache, lightheadedness, nausea upon awakening this morning. Patient denies fever, chills, chest pain, dyspnea, vomiting, dysuria. Patient states she left the gas on in her home and forgot and after some time, smelled something in the air but still was unsure what was causing it. PMD: Dr. Lopez Time/Duration: Other (this morning) Symptom Onset: Gradual Symptom Course: Unchanged Activities at Onset: Light Context: Home Past Medical History - Provider Review Nursing Documentation Reviewed: Yes - Infectious Disease Hx of Infectious Diseases: None - Tetanus Immunization Tetanus Immunization: Unknown - Cardiac Hx Cardiac Disorders: Yes ([place], PALPITATIONS) - Pulmonary Hx Respiratory Disorders: Yes Hx Asthma: Yes Hx Pneumonia: Yes - Neurological Hx Neurological Disorder: Yes (NEUROPATHY) - HEENT Hx HEENT Disorder: Yes Hx Cataracts: Yes (2012 BILATERAL SURGERY) - Renal Hx Renal Disorder: Yes Hx Kidney Stones: Yes (LEFT KIDNEY STONES) - Endocrine/Metabolic Hx Hypothyroidism: Yes - Hematological/Oncological Hx Blood Disorders: Yes Hx Anemia: Yes Hx Cancer: Yes (COLON CA 30YEARS AGO) Hx Chemotherapy: No - Integumentary Hx Dermatological Disorder: No - Musculoskeletal/Rheumatological Hx Musculoskeletal Disorders: Yes Hx Back Pain: Yes (DISLOCATED VERTEBRAE LOWER BACK) Hx Falls: Yes Hx Unsteady Gait: Yes - Gastrointestinal Hx Gastrointestinal Disorders: Yes - Genitourinary/Gynecological Hx Genitourinary Disorders: Yes Hx Urinary Tract Infection: Yes - Psychiatric Hx Psychophysiologic Disorder: Yes Hx Anxiety: Yes Hx Depression: Yes Hx Substance Use: No - Surgical History Hx Appendectomy: Yes Hx Cardiac Catheterization: No (DENIES) Hx Section: Yes - Anesthesia Hx Anesthesia: Yes Hx Anesthesia Reactions: No Hx Malignant Hyperthermia: No - Suicidal Assessment Feels Threatened In Home Enviroment: No Family/Social History - Physician Review Nursing Documentation Reviewed: Yes Family/Social History: No Known Family HX Smoking Status: Never Smoked Hx Alcohol Use: No Hx Substance Use: No Hx Substance Use Treatment: No Allergies/Home Meds Allergies/Adverse Reactions: Allergies diltiazem Allergy (Verified 03/08/19 19:16) ANAPHYLAXIS metoprolol Allergy (Verified 09/04/18 19:16) ANAPHYLAXIS Home Medications: Home Meds Medication Instructions Recorded Confirmed Levothyroxine Sodium 0.075 mg PO DAILY 02/19/12 03/24/17 Aspirin [Aspirin Chewable] 81 mg PO QOTHERDAY 12/18/16 03/24/17 Gabapentin [Neurontin] 1 cap PO BID 03/24/17 03/24/17 Review of Systems - Physician Review All systems were reviewed & negative as marked: Yes - Review of Systems Constitutional: absent: Fevers Respiratory: absent: SOB Physical Exam - Physical Exam Narrative Physical Exam (Text): 09/04/18 20:25 Constitutional: No acute distress. Head: Normocephalic. Atraumatic. Eyes: PERRL. ENT: Moist mucous membranes. Neck: Supple. Cardiovascular: Regular rate. Chest: No tenderness. Respiratory: Clear to auscultation bilaterally. GI: Soft. Nontender. Nondistended. Back: No CVA tenderness. Musculoskeletal: No tenderness or swelling of extremities. Skin: No rash. Neurologic: Alert, no focal deficit. Medical Decision Making ED Course and Treatment: 09/04/18 20:26 EKG: Ordered, reviewed, and independently interpreted the EKG. Rate : 60 BPM Rhythm : Sinus Rhythm Interpretation : T-wave inversions - inferior and lateral, Comparison : Unchanged from previous EKG. 09/04/18 21:23 Procedure: Head CT Dictator: Dr. Triston Rose M.D. Impression: 1. Diffuse age-appropriate cerebellar and cerebral atrophy. 2. Bilateral periventricular hypolucencies compatible with chronic white matter ischemic disease. 3. Sinusitis as above. 4. No evidence of acute intracranial pathology. Labs unremarkable. Patient continues to feel excessively drowsy and weak, lives alone at home, unsafe discharge. Dr. Lopez accepts patient for observation. - RAD Interpretation Radiology Orders: 09/04/18 19:31 HEAD W/O CONTRAST [CT] Stat CHEST PORTABLE [RAD] Stat - Medication Orders Current Medication Orders: Sodium Chloride (Sodium Chloride 0.9%) 1,000 mls @ 100 mls/hr IV .Q10H STA Stop: 09/05/18 05:31 Discontinued Medications Ketorolac Tromethamine (Toradol) 15 mg IVP STAT STA Stop: 09/04/18 19:33 Ondansetron HCl (Zofran Inj) 8 mg IVP STAT STA Stop: 09/04/18 19:33 Disposition/Present on Arrival - Present on Arrival Any Indicators Present on Arrival: No History of DVT/PE: No History of Uncontrolled Diabetes: No Urinary Catheter: No History of Decub. Ulcer: No History Surgical Site Infection Following: None - Disposition Have Diagnosis and Disposition been Completed?: Yes Diagnosis: Dizziness Disposition: HOSPITALIZED Disposition Time: 21:27 Patient Plan: Observation Condition: GOOD
[2018-09-04 19:47] LABS: INR 1.05; PARTIAL THROMBOPLASTIN TIME 29.9 Seconds (26.9-38.3); PROTHROMBIN TIME 11.7 SECONDS (9.4-12.5)
[2018-09-04 19:49] LABS: ALB/GLOB RATIO 1.4 (1.1-1.8); ALT/SGPT 98 U/L (7-56); AST/SGOT 94 U/L (14-36); BLOOD UREA NITROGEN 29 mg/dL (7-21); CALCIUM 9.6 mg/dL (8.4-10.5); GFR NON-AFRICAN AMERICAN > 60; LIPASE 266 U/L (23-300)
[2018-09-04 19:59] LABS: TROPONIN I 0.04 ng/mL
[2018-09-04 20:04] LABS: CK MB% 3.4 % (2.5-3.0); CK-MB 27.1 ng/mL (0.0-3.6)
[2018-09-04 21:52] VITALS: TEMP 98.7
[2018-09-04 21:56] VITALS: BP 127/57; PULSE 49; O2SAT 98
[2018-09-04 23:51] VITALS: RESP 18
[2018-09-05 02:32] LABS: URINE BILIRUBIN NEGATIVE (NEGATIVE); URINE BLOOD NEGATIVE (NEGATIVE); URINE GLUCOSE (UA) NEGATIVE (NEGATIVE); URINE LEUKOCYTE ESTERASE TRACE Leu/uL (NEGATIVE); URINE PROTEIN NEGATIVE mg/dL (<30 mg/dL); URINE UROBILINOGEN 0.2 E.U./dL (<1 E.U./dL)
[2018-09-05 02:33] LABS: URINE APPEARANCE CLEAR (CLEAR); URINE COLOR LIGHT YELLOW (YELLOW)
[2018-09-05 02:44] LABS: URINE BACTERIA MOD /hpf; URINE EPITHELIAL CELLS 0 - 2 /hpf (0-5); URINE RBC 0 - 2 /hpf (0-2)
[2018-09-05 07:25] LABS: BASO # 0.03 K/mm3 (0.0-2.0); BASO % 1.4 % (0.0-3.0); EOS # 0.1 (0.0-0.7); EOS % 6.5 % (1.5-5.0); HEMOGLOBIN 10.8 g/dL (12.0-16.0); LYMPH # 0.8 (1.2-3.4); MEAN CORPUSCULAR HEMOGLOBIN 30.9 pg (25.0-35.0); MEAN CORPUSCULAR HGB CONC 33.5 g/dl (31.0-37.0); MEAN PLATELET VOLUME 9.9 fl (7.0-11.0); MONO # 0.2 (0.1-0.6); MONO % 9.8 % (1.0-6.0); RBC 3.5 10^6/uL (3.5-6.1); RED CELL DISTRIBUTION WIDTH 12.6 % (11.5-14.5); WHITE BLOOD COUNT 2.1 10^3/uL (4.5-11.0)
[2018-09-05 07:55] LABS: ALB/GLOB RATIO 1.1 (1.1-1.8); ALBUMIN 2.8 g/dL (3.0-4.8); ALT/SGPT 71 U/L (7-56); AST/SGOT 64 U/L (14-36); BLOOD UREA NITROGEN 23 mg/dL (7-21); CALCIUM 8.5 mg/dL (8.4-10.5); GFR NON-AFRICAN AMERICAN > 60
[2018-09-05 08:01] LABS: CK-MB 14.6 ng/mL (0.0-3.6)
--- NOTE | 2018-09-05 09:59 | RAD ---
Date of service: 09/04/2018 HISTORY: lightheaded, nausea COMPARISON: Portable chest 08/28/2018. FINDINGS: LUNGS: Patient remains rotated toward the left. No airspace disease identified bilaterally. PLEURA: No significant pleural effusion identified, no pneumothorax apparent. CARDIOVASCULAR: Calcific atherosclerotic changes are seen related to the thoracic aorta. Normal cardiac size. No pulmonary vascular congestion. OSSEOUS STRUCTURES: No significant abnormalities. VISUALIZED UPPER ABDOMEN: Normal. OTHER FINDINGS: None. IMPRESSION: No interval acute cardiopulmonary disease appreciated.
--- NOTE | 2018-09-05 15:47 | CT ---
Date of service: 09/04/2018 PROCEDURE: CT HEAD WITHOUT CONTRAST. HISTORY: lightheaded, headache, nausea COMPARISON: Unenhanced head CT 03/24/2017. TECHNIQUE: Axial computed tomography images were obtained through the head/brain without intravenous contrast. Radiation dose: Total exam DLP = 944.42 mGy-cm. This CT exam was performed using one or more of the following dose reduction techniques: Automated exposure control, adjustment of the mA and/or kV according to patient size, and/or use of iterative reconstruction technique. FINDINGS: HEMORRHAGE: No intracranial hemorrhage. BRAIN: No suspicious interval findings are appreciated and the skin, nipples and visualized axillae appear unremarkable bilaterally. No suspicious lymphadenopathy bilaterally. VENTRICLES: Unremarkable. No hydrocephalus. CALVARIUM: Unremarkable. PARANASAL SINUSES: Left maxillary sinus polyp or retention cyst now evident. Gross mucoid changes a periphery of right maxillary sinus versus marked mucosal inflammatory change... MASTOID AIR CELLS: Unremarkable as visualized. No inflammatory changes. OTHER FINDINGS: None. IMPRESSION: Stable appearing age related neuro degenerative changes throughout the cerebrum primarily, as compared to 03/24/[address] No definite acute intracranial findings. Follow-up MRI or CT are available if clinically warranted. Concordant preliminary report from [facility], 09/04/2017, 9:13 p.m..
--- NOTE | 2018-09-05 21:06 | CARD ---
APPROVED REPORT Date of service: 09/04/2018 EKG Measurement Heart [id number] <Conclusion> Sinus rhythm with 1st degree AV block with premature atrial complexes Voltage criteria for left ventricular hypertrophy T wave abnormality, consider inferior ischemia T wave abnormality, consider anterolateral ischemia Abnormal ECG
--- NOTE | 2018-09-05 23:10 | HP ---
DATE OF EXAM: 09/05/2018 CHIEF COMPLAINT: Weakness, headache, malaise, overcome with noxious feelings. 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 She has a devoted son who lives in [place] speaks with her daily and visits 3 times a week. Yesterday, the patient was going about her usual home activities when she noticed the noxious odor in the house and realized she left the gas on the stove. Because of her advanced age, she says her sense of smell is rather poor. She did not know the odor was there until she was already feeling weak, headache, nauseous, dizzy at times. She turned off the gas, open the windows and called her son. The house is safe and stable but the son suggested that she comes to the emergency room because of her ongoing symptoms. She was evaluated late Friday evening in the emergency room. Labs were acceptable except for slight low sodium and chloride. X-ray and CT scan of the head were unremarkable/acceptable for her given age but because of the late hour it was felt that she be admitted for overnight observation in view of her continued symptoms of generalized weakness, some nauseousness, dizzy, and lightheadedness. PAST MEDICAL HISTORY: Significant for hypothyroidism. She was recently in the emergency room for bilateral leg edema more so on the left side at which time the venous Doppler was done and negative for DVT. Past medical history is negative for hypertension, diabetes, cholesterol, tuberculosis, asthma, seizures, coronary artery disease, TIA, CVA, or cancer of any type. PAST SURGICAL HISTORY: Her only surgical procedure was an appendectomy many years ago. CURRENT HOME MEDICATIONS: Include Levoxyl, baby aspirin, Lasix 20 mg started approximately one week ago with the hospital stay for swollen legs and omeprazole for occasional GI symptoms. SOCIAL HISTORY: She is a , lives alone, has one son as mentioned above. ALLERGIES: SHE REPORTS SHE IS ALLERGIC TO DILTIAZEM, WHICH CAUSES SWELLING OF THE MOUTH AND ANOTHER MEDICINE THAT SHE DOES NOT RECALL. REVIEW OF SYSTEMS: On multiple points is otherwise unremarkable. PHYSICAL EXAMINATION GENERAL: The patient seen this Friday morning room 570, bed 1, resting comfortably in bed. She is sleeping when I arrive but is quite awake now alert, pleasant in good spirits and was later observed enjoying breakfast, managing well on her own. She reports she is now asymptomatic, no further generalized weakness, headache or dizziness or fatigue. HEAD AND NECK: Unremarkable. Conjunctivae are pink. Mucous membranes are moist. Neck is supple. Mucous membranes are clear. Face and oral nasopharynx are all normal. There are no signs of irritation or chemical tirado. LUNGS: Show good aeration right and left. HEART: Regular, not tachycardic with soft murmur in place. ABDOMEN: Soft and nontender. BREASTS: Not examined. EXTREMITIES: Show no noticeable edema. IMPRESSION: 1. Exposure to noxious stimulants in the form of natural gas leak at home when the patient accidentally left a burner on. 2. History of hypothyroidism. 3. Hyponatremic, hypochloremic, contraction alkalosis most likely due to recent initiation of furosemide. PLAN: The patient had already been treated overnight with IV hydration. Morning lab show some improvement in the hypokalemia, hypochloremia. Her potassium was slightly low at 3.3 which was supplemented with an oral potassium. I spoke with her son at great length. He will be coming to visit his mom this afternoon and bring her home. He reports that at home she does quite well, goes to shop several times a week and is active and ambulatory. I asked the patient to follow up with us in the office in approximately one week. Continue medications as above aspirin, Levoxyl with omeprazole and Lasix on an as needed basis. The patient was discharged to home. Naresh Lopez MD
== END 2018-09-05 15:43 | disposition home or self-care (01) ==
LOC: ED 19:01 → ERH 21:29 → 5RSO 22:41
PROVIDERS: ADMIT Internal Medicine; ATTEND Internal Medicine
DX: R53.1 Weakness (principal); R42 Dizziness and giddiness; E03.9 Hypothyroidism, unspecified; E87.1 Hypo-osmolality and hyponatremia; I10 Essential (primary) hypertension; E87.8 Other disorders of electrolyte and fluid balance, not elsewhere classified; J45.909 Unspecified asthma, uncomplicated; T75.89XA Other specified effects of external causes, initial encounter; Z85.038 Personal history of other malignant neoplasm of large intestine; Z87.01 Personal history of pneumonia (recurrent); Z87.442 Personal history of urinary calculi; Z87.440 Personal history of urinary (tract) infections
CPT/HCPCS: 36415; 70450; 71045; 80053; 81001; 82550; 82553; 82948; 83690; 83735; 84484; 85025; 85610; 85730; 87086; 93005; 96374; 99285; G0378; J1885; J2405; J7030

== ENCOUNTER 2018-10-08 23:46 | Inpatient (IN) | payer MEDICARE ==
[2018-10-08 23:47] VITALS: BMI 17.3
--- NOTE | 2018-10-09 01:01 | ED PDOC ---
Arrival/HPI - General Chief Complaint: Lower Extremity Problem/Injury Time Seen by Provider: 10/09/18 00:00 Historian: Patient - History of Present Illness Narrative History of Present Illness (Text): 10/09/18 01:35 83yr old female presents today with bilateral leg pain and bilateral swelling left greater than the right. Patient states symptoms have been increasing. Patient is complaining of pain and difficulty with ambulation. Patient states she lives alone. Patient denies chest pain or shortness of breath. She denies fevers or chills. She denies any recent trauma or injury. No other complaints. Past Medical History - Provider Review Nursing Documentation Reviewed: Yes - Travel History Have you recently traveled outside [place] w/in the past 3 mons?: No - Infectious Disease Hx of Infectious Diseases: None - Tetanus Immunization Tetanus Immunization: Unknown - Cardiac Hx Cardiac Disorders: Yes ([place], PALPITATIONS) Hx AL: Yes - Pulmonary Hx Respiratory Disorders: Yes Hx Asthma: Yes Hx Pneumonia: Yes - Neurological Hx Neurological Disorder: Yes (NEUROPATHY) - HEENT Hx HEENT Disorder: Yes Hx Cataracts: Yes (2011 BILATERAL SURGERY) - Renal Hx Renal Disorder: Yes Hx Kidney Stones: Yes (LEFT KIDNEY STONES) - Endocrine/Metabolic Hx Endocrine Disorders: Yes Hx Hypothyroidism: Yes - Hematological/Oncological Hx Blood Disorders: Yes Hx Anemia: Yes Hx Cancer: Yes (COLON CA 30YEARS AGO) Hx Chemotherapy: No - Integumentary Hx Dermatological Disorder: No - Musculoskeletal/Rheumatological Hx Musculoskeletal Disorders: Yes 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) Hx Back Pain: Yes (DISLOCATED VERTEBRAE LOWER BACK) Hx Falls: Yes Hx Unsteady Gait: Yes - Gastrointestinal Hx Gastrointestinal Disorders: Yes - Genitourinary/Gynecological Hx Genitourinary Disorders: Yes Hx Urinary Tract Infection: Yes - Psychiatric Hx Psychophysiologic Disorder: Yes Hx Anxiety: Yes Hx Depression: Yes Hx Substance Use: No - Surgical History Hx Appendectomy: Yes Hx Cardiac Catheterization: No (DENIES) Hx Section: Yes Other/Comment: Hx of - Anesthesia Hx Anesthesia: Yes Hx Anesthesia Reactions: No Hx Malignant Hyperthermia: No - Suicidal Assessment Feels Threatened In Home Enviroment: No Family/Social History - Physician Review Nursing Documentation Reviewed: Yes Family/Social History: Unknown Family HX Smoking Status: Never Smoked Hx Alcohol Use: No Hx Substance Use: No Hx Substance Use Treatment: No Allergies/Home Meds Allergies/Adverse Reactions: Allergies diltiazem Allergy (Verified 09/04/18 19:16) ANAPHYLAXIS metoprolol Allergy (Verified 09/04/18 19:16) ANAPHYLAXIS Home Medications: Home Meds Medication Instructions Recorded Confirmed Levothyroxine Sodium 0.075 mg PO DAILY 02/19/12 03/24/17 Aspirin [Aspirin Chewable] 81 mg PO QOTHERDAY 12/18/16 03/24/17 Gabapentin [Neurontin] 1 cap PO BID 03/24/17 03/24/17 Review of Systems - Review of Systems Constitutional: absent: Fatigue, Fevers Respiratory: absent: SOB, Cough Cardiovascular: absent: Chest Pain, Palpitations Gastrointestinal: absent: Abdominal Pain, Nausea, Vomiting Musculoskeletal: Other (leg swelling) Neurological: absent: Headache, Dizziness Psychiatric: absent: Anxiety, Depression Physical Exam Vital Signs Reviewed: Yes Vital Signs Temp Pulse Resp BP Pulse Ox 10/08/18 23:56 97.6 F 61 18 144/72 97 Temperature: Afebrile Blood Pressure: Normal Pulse: Regular Respiratory Rate: Normal Appearance: Positive for: Well-Appearing, Non-Toxic, Comfortable Pain Distress: None Mental Status: Positive for: Alert and Oriented X 3 - Systems Exam Head: Present: Atraumatic Mouth: Present: Moist Mucous Membranes Neck: Present: Normal Range of Motion Respiratory/Chest: Present: Clear to Auscultation, Good Air Exchange. No: Respiratory Distress, Accessory Muscle Use Cardiovascular: Present: Regular Rate and Rhythm Back: Present: Normal Inspection Upper Extremity: Present: Normal ROM Lower Extremity: Present: CALF TENDERNESS, NORMAL PULSES, Normal ROM, Tend erness, Swelling, Erythema (there is a slight hint of erythema noted to the anterior aspect of the left leg), Neurovascularly Intact, Capillary Refill < 2 s Neurological: Present: GCS=15, Speech Normal, Motor Func Grossly Intact, Normal Sensory Function Skin: Present: Warm, Dry Psychiatric: Present: Alert, Oriented x 3 Medical Decision Making ED Course and Treatment: 10/09/18 01:42 83yr old female with worsening bilateral lower leg edema. slight erythema noted to left lower leg, ? developing cellulitis. cbc: wnl cmp: bun; 37 cr; 0.5 bnp: wnl cxr; wnl duplex of bilateral lower legs; no dvt. verbal report from [facility] tech blood cultures pending pt started on rocephin IV. case discussed with dr. phan; accepts observational status to med/surg for cellulitis of left leg, leg swelling. All aspects of this case were discussed the attending of record. impression; cellulitis, leg, bilateral leg swelling, leg pain admit obs med/surg - RAD Interpretation Radiology Orders: 10/09/18 00:19 CHEST PORTABLE [RAD] Stat DUPLEX LOWER EXTRM VEIN BILAT [US] Stat Disposition/Present on Arrival - Present on Arrival Any Indicators Present on Arrival: No History of DVT/PE: No History of Uncontrolled Diabetes: No Urinary Catheter: No History of Decub. Ulcer: No History Surgical Site Infection Following: None - Disposition Have Diagnosis and Disposition been Completed?: Yes Diagnosis: Cellulitis, leg Disposition: HOSPITALIZED Disposition Time: 01:44 Patient Plan: Observation Condition: FAIR Discharge Instructions (ExitCare): Cellulitis (ED) Forms: [employer] (Danish)
[2018-10-09 01:21] LABS: BASO # 0.03 K/mm3 (0.0-2.0); BASO % 0.8 % (0.0-3.0); EOS # 0.2 (0.0-0.7); EOS % 5.1 % (1.5-5.0); HEMOGLOBIN 11.7 g/dL (12.0-16.0); LYMPH % 28.2 % (22.0-35.0); MEAN CELL VOLUME 93.1 fl (80.0-105.0); MEAN CORPUSCULAR HGB CONC 33.3 g/dl (31.0-37.0); MEAN PLATELET VOLUME 10.3 fl (7.0-11.0); MONO # 0.2 (0.1-0.6); MONO % 6.5 % (1.0-6.0); RBC 3.77 10^6/uL (3.5-6.1)
[2018-10-09 01:36] LABS: ALB/GLOB RATIO 1.3 (1.1-1.8); ALBUMIN 3.5 g/dL (3.0-4.8); ALT/SGPT 78 U/L (7-56); AST/SGOT 84 U/L (14-36); BLOOD UREA NITROGEN 37 mg/dL (7-21); CALCIUM 9.4 mg/dL (8.4-10.5); GFR NON-AFRICAN AMERICAN > 60
[2018-10-09 01:46] LABS: B-TYPE NATRIURETIC PEPTIDE 364 pg/mL (0-450); TROPONIN I 0.03 ng/mL
[2018-10-09 02:04] LABS: CK MB% 1.8 % (2.5-3.0)
[2018-10-09 02:13] LABS: WHITE BLOOD COUNT 3.7 10^3/uL (4.5-11.0)
[2018-10-09] MEDS ORDERED: cefTRIAXone 1 gm 1 GM/100 ML BAG IVPB STA (02:20)
[2018-10-09] MEDS: Sodium Chloride 0.9% 500 ML IV SCH ×3 (02:46→19:50)
--- NOTE | 2018-10-09 09:29 | US ---
HISTORY: Leg pain and swelling. Evaluate for DVT PHYSICIAN(S): Hilario Titus MD. TECHNIQUE: Duplex sonography and color-flow Doppler with graded compression were used to evaluate the deep venous systems of both lower extremities. FINDINGS: The visualized deep venous systems of both lower extremities are sonographically normal and compressible. Normal wave forms and augmentation are seen. There is no sonographic evidence for deep venous thrombosis in the visualized segments of both lower extremities. IMPRESSION: No sonographic evidence for deep venous thrombosis in the visualized segments of both lower extremities.
--- NOTE | 2018-10-09 09:49 | RAD ---
Date of service: 10/09/2018 HISTORY: b/l leg swelling COMPARISON: 09/04/2018 TECHNIQUE: 1 view obtained. FINDINGS: LUNGS: No active pulmonary disease. PLEURA: No significant pleural effusion identified, no pneumothorax apparent. CARDIOVASCULAR: No aortic atherosclerotic calcification present. Normal cardiac size. No pulmonary vascular congestion. OSSEOUS STRUCTURES: No significant abnormalities. VISUALIZED UPPER ABDOMEN: Normal. OTHER FINDINGS: None. IMPRESSION: No active disease.
--- NOTE | 2018-10-09 16:03 | CP.PCM.APN ---
Subjective - Date & Time of Evaluation Date of Evaluation: 10/09/18 Time of Evaluation: 10:30 - Subjective Subjective: Pt. seen and examined in bed, appears comfortable, states swelling to right leg has improved, feels better, denied shortness of breath. Objective - Vital Signs/Intake and Output Vital Signs (last 24 hours): Temp Pulse Resp BP Pulse Ox 97.6 F 56 L 20 147/59 L 99 10/08/18 23:56 10/09/18 04:34 10/09/18 04:34 10/09/18 02:44 10/09/18 02:44 Intake and Output: 10/09/18 10/09/18 06:59 18:59 Intake Total 0 Balance 0 - Medications Medications: Current Medications Acetaminophen (Tylenol 325mg Tab) 650 mg PO Q4 PRN PRN Reason: Pain, moderate (4-7) Sodium Chloride (Sodium Chloride 0.9%) 500 mls @ 60 mls/hr IV .Q8H20M JOSE Last Admin: 10/09/18 02:46 Dose: 60 mls/hr Levothyroxine Sodium (Synthroid) 75 mcg PO 0600 JOSE - Labs Labs: 10/09/18 00:50 10/09/18 00:50 - Constitutional Appears: Well - Head Exam Head Exam: NORMOCEPHALIC - Eye Exam Eye Exam: Normal appearance Pupil Exam: NORMAL ACCOMODATION - ENT Exam ENT Exam: Mucous Membranes Moist, Normal Exam - Neck Exam Neck Exam: Full ROM - Respiratory Exam Respiratory Exam: Clear to Ausculation Bilateral - Cardiovascular Exam Cardiovascular Exam: REGULAR RHYTHM, +S1, +S2 - GI/Abdominal Exam GI & Abdominal Exam: Soft, Normal Bowel Sounds - Rectal Exam Rectal Exam: Deferred - Exam Exam: absent: Circumcision, NORMAL INSPECTION, Scrotal Swelling, Testicular Tenderness, Uretheral Discharge, Testicular Vertical Lie, Bladder Distension External exam: absent: Ecchymosis, Erythema, Lacerations, Lesions, NORMAL EXTERNAL EXAM, Swelling - Extremities Exam Extremities Exam: Full ROM Additional comments: trace edema to left leg noted. - Back Exam Back Exam: Full ROM - Neurological Exam Neurological Exam: Alert, Awake, Oriented x3 - Psychiatric Exam Psychiatric exam: Normal Affect, Normal Mood Assessment and Plan - Assessment and Plan (Free Text) Assessment: ITS Impressions Chest X-Ray 10/09/18 00:19 IMPRESSION: No active disease. Extremity Ultrasound 10/09/18 00:19 IMPRESSION: No sonographic evidence for deep venous thrombosis in the visualized segments of both lower extremities. Assessment: 83yr old female presents today with bilateral leg pain and bilateral swelling left greater than the right, with symptoms have been increasing, complaints of pain and difficulty with ambulation, admitted for further eval and treatment of cellulities and leg edema. Plan: 1. Cellulitis Significantly improved, no eryrthema, warmth noted, no openings, or drainage noted. 2. Lower extremity edema noted trace amount to left leg. Rec leg elevation for continued improvement. 3. Weakness PT eval pending. will continue to monitor clinical status and follow closely. FU pt recommendation
[2018-10-10] MEDS: Sodium Chloride 0.9% 500 ML IV SCH ×3 (04:00→23:37)
[2018-10-10] MEDS: Levothyroxine 75 MCG TAB PO SCH (06:02)
[2018-10-11] MEDS: Levothyroxine 75 MCG TAB PO SCH (06:23)
[2018-10-11] MEDS: Sodium Chloride 0.9% 500 ML IV SCH ×2 (13:38→19:50)
[2018-10-12] MEDS: Levothyroxine 75 MCG TAB PO SCH (05:44)
--- NOTE | 2018-10-12 16:32 | CP.PCM.PCO ---
Physician Communication Note - Physician Communication Note Physician Communication Note: PT rec TcU, tcu eval pending,auth pending,discussed w/Mandy,SW
--- NOTE | 2018-10-12 16:32 | CP.PCM.PCO ---
Physician Communication Note - Physician Communication Note Physician Communication Note: pt.appears comfortable,sitting up in chair,left leg signif improved edema,
[2018-10-13] MEDS: Levothyroxine 75 MCG TAB PO SCH (06:23)
--- NOTE | 2018-10-13 10:19 | CP.PCM.PN ---
Subjective - Date & Time of Evaluation Date of Evaluation: 10/13/18 Time of Evaluation: 12:59 - Subjective Subjective: Podiatry progress note for Drs. Jung/Melinda 83 y/o female patient with PMHx of [place], palpitation, neuropathy, renal stones, hx of colon cancer, and arthritis was seen and evaluated with Dr. Jung due to complaints of left foot pain. Patient states pain started several days ago, however, worsened yesterday. Patient reports she initially came in to the Ed due to complaints of bilateral leg pain and swellin. Patient is complaining of pain and difficulty with ambulation. Patient states she lives alone. Patient denies chest pain or shortness of breath. She denies fevers or chills. he denies any recent trauma or injury. No other complaints. Objective - Vital Signs/Intake and Output Vital Signs (last 24 hours): Temp Pulse Resp BP Pulse Ox 97.4 F L 55 L 19 158/78 H 96 10/13/18 08:23 10/13/18 08:23 10/13/18 08:23 10/13/18 08:23 10/13/18 08:23 Intake and Output: 10/13/18 10/13/18 06:59 18:59 Intake Total 1120 Balance 1120 - Medications Medications: Current Medications Acetaminophen (Tylenol 325mg Tab) 650 mg PO Q4 PRN PRN Reason: Pain, moderate (4-7) Last Admin: 10/10/18 00:20 Dose: 650 mg Levothyroxine Sodium (Synthroid) 75 mcg PO 0600 JOSE Last Admin: 10/13/18 06:23 Dose: 75 mcg - Labs Labs: 10/09/18 00:50 10/09/18 00:50 - Constitutional Appears: Well, Non-toxic, No Acute Distress - Head Exam Head Exam: ATRAUMATIC, NORMOCEPHALIC - Extremities Exam Additional comments: Left Lower Extremity Exam VASC: DP faintly palpable, PT 2/4 palpable, CFT less than 3 seconds, TG within normal limits, no edema noted NEURO: epicritic and protective sensations intact DERM: varicosities note to bilateral lower extremities, no open lesions, no ecchymosis, no edema, no clinical signs of infection ORTHO: significant pain on palpation to the midshaft of the 2nd and 3rd metatarsals, pain on palpation to the 2nd interspace plantarly, no pain with any ranges of motion, no pain to the digits, no other deformities noted, MSK 5/5 - Neurological Exam Neurological Exam: Alert, Awake, Oriented x3 - Psychiatric Exam Psychiatric exam: Normal Affect, Normal Mood Assessment and Plan - Assessment and Plan (Free Text) Assessment: 83 y/o female patient seen and evaluated for pain to the left foot Plan: Patient seen and evaluated with Dr. Jung Plan discussed with attending Chart, labs and vitals were reviewed Ordered Left foot X-ray: no acute fracture or dislocation noted Ordered Left foot MRI without contrast to rule out stress fracture Patient to remain PWB in surgical shoe to the left lower extremity Podiatry will continue to follow patient while in house
--- NOTE | 2018-10-13 11:49 | RAD ---
Date of service: 10/13/2018 PROCEDURE: Left Foot Radiographs. HISTORY: r/o 2nd and 3rd met stress fractures COMPARISON: None. TECHNIQUE: 3 views obtained. FINDINGS: BONES: Bone alignment is normal. There is mild periarticular bone demineralization. There is no acute displaced fracture or bone destruction. There is a prominent dorsal calcaneal enthesophyte. There is a small plantar calcaneal spur. JOINTS: Normal. SOFT TISSUES: Normal. OTHER FINDINGS: None. IMPRESSION: No acute displaced fracture or dislocation.
--- NOTE | 2018-10-13 12:19 | CP.PCM.PCO ---
Physician Communication Note - Physician Communication Note Physician Communication Note: Pt.accepted to TCU,per Monica,pending insurance auth.,medically cleared
--- NOTE | 2018-10-13 13:41 | PN ---
DATE: 10/12/2018 DAILY PROGRESS NOTE SUBJECTIVE: The patient is an 83-year-old female, who presented to the emergency room with bilateral leg swelling and tenderness. The patient is known to have a history of osteoarthritis, left renal calculus, colon carcinoma 30 years ago, and status post cataract surgery. During her hospital stay, studies were negative for deep vein thrombosis in the legs. Chest x-ray showed no acute disease. The patient was agreeable to physical therapy on the Transitional Care Unit. The patient is also known to be hypothyroid and have severe osteoarthritis. The patient agreed to be evaluated for the Transitional Care Unit to receive physical therapy for ambulation. When seeing, the patient is sitting on a chair at bedside. She is awake, alert, and oriented. She voices no complaints. Her vital signs are stable. The edema of the leg seems to have subsided. The patient is feeling well and will be evaluated for Transitional Care Unit and hopefully transferred as a bed becomes available. Dov Lopez MD MTDD
--- NOTE | 2018-10-13 21:09 | HP ---
DATE OF EXAM: <> HISTORY OF PRESENT ILLNESS: The patient is an 83-year-old female who presents to the emergency room complaining of bilateral leg swelling. The patient has noted increasing swelling of the legs, the left greater than the right. She was concerned about a possible deep vein thrombosis and therefore presented to the emergency room. She denies any chest pain, shortness of breath. She denies falling at home. However, her ambulation is quite precarious as the patient ambulates with a rollator walker in her home and appears very unstable. PAST MEDICAL HISTORY: I have known the patient for many years and she is seen in followup in house calls. The patient is known to have a past medical history positive for osteoarthritis. She has a left renal calculus. She has a history of colon carcinoma from 30 years ago. She is also status post cataract surgery. SOCIAL HISTORY: She is a nonsmoker, she never did smoke. She is a nonalcoholic drinker. The patient lives alone. She has a son who visits her from out of town once a week. ALLERGIES: SHE IS KNOWN TO BE ALLERGIC TO DILTIAZEM AND METOPROLOL, WHICH HAS CAUSED ANAPHYLAXIS IN THE PAST. MEDICATIONS ON ADMISSION: Include levothyroxine 0.075 mg daily, aspirin 81 mg a day and gabapentin 300 mg twice a day. REVIEW OF SYSTEMS: Otherwise unremarkable. PHYSICAL EXAMINATION GENERAL: The patient is awake, alert and oriented. VITAL SIGNS: The blood pressure is 144/72, heart rate is 61 beats per minute and she is afebrile. HEAD, EYES, EARS, NOSE AND THROAT: Unremarkable. NECK: Supple with no lymphadenopathy. No goiter. LUNGS: Clear to auscultation and percussion. HEART: Regular. No murmurs are appreciated. ABDOMEN: Soft and nontender with no organomegaly. EXTREMITIES: Show bilateral calf tenderness and bilateral edema, greater on the left than on the right. SKIN: No appreciative cellulitis is noted. NEUROLOGIC: The patient is awake, alert and oriented with no focal neurological signs. LABORATORY DATA AND DIAGNOSTIC STUDIES: Venous Doppler studies were negative for DVT. Chest x-ray shows no acute disease. Laboratory studies show the white blood cell count to be 3.7, hemoglobin and hematocrit are 11.7 and 35.1, platelet count is 143. Sodium is 135, potassium 3.8, blood urea nitrogen is 37, creatinine is 0.8, nonfasting glucose is 91. Troponins are 0.03. Her CK is elevated at 965, although the patient denies any recent falls at home. ASSESSMENT AND PLAN: So the patient is admitted. She is started on diuretics for the edema of the legs. Physical Therapy is to evaluate the patient. I discussed with the patient the possibility of physical therapy on our Transitional Care Unit. She seems to be in favor of that, but will think of it overnight and we will discuss that again in the morning. Dov Lopez MD
[2018-10-14] MEDS: Levothyroxine 75 MCG TAB PO SCH (06:03)
[2018-10-14 07:57] VITALS: BP 144/70; PULSE 61; RESP 20; TEMP 97.2; O2SAT 97
--- NOTE | 2018-10-14 10:14 | CP.PCM.PCO ---
Physician Communication Note - Physician Communication Note Physician Communication Note: No complaints, appears comfortable,eating breakfast,insurance auth pending
--- NOTE | 2018-10-14 12:13 | CP.PCM.PN ---
<Pau Barrow - Last Filed: 10/14/18 12:10> Subjective - Date & Time of Evaluation Date of Evaluation: 10/14/18 Time of Evaluation: 12:12 - Subjective Subjective: Podiatry progress note for Drs. Jung/Melinda 83 y/o female patient with PMHx of [place], palpitation, neuropathy, renal stones, hx of colon cancer, and arthritis was seen and evaluated with Dr. Lawrence due to complaints of left foot pain. Patient states pain started several days ago, however, worsened yesterday. Patient denies an MRI at this time. Patient denies chest pain or shortness of breath. She denies fevers or chills. he denies any recent trauma or injury. No other complaints. Objective - Vital Signs/Intake and Output Vital Signs (last 24 hours): Temp Pulse Resp BP Pulse Ox 97.2 F L 61 20 144/70 97 10/14/18 06:00 10/14/18 06:00 10/14/18 06:00 10/14/18 06:00 10/14/18 06:00 Intake and Output: 10/14/18 10/14/18 06:59 18:59 Intake Total 1060 240 Balance 1060 240 - Medications Medications: Current Medications Acetaminophen (Tylenol 325mg Tab) 650 mg PO Q4 PRN PRN Reason: Pain, moderate (4-7) Last Admin: 10/10/18 00:20 Dose: 650 mg Levothyroxine Sodium (Synthroid) 75 mcg PO 0600 JOSE Last Admin: 10/14/18 06:03 Dose: 75 mcg - Labs Labs: 10/09/18 00:50 10/09/18 00:50 - Constitutional Appears: Well, Non-toxic, No Acute Distress - Head Exam Head Exam: ATRAUMATIC, NORMOCEPHALIC - Extremities Exam Additional comments: Left Lower Extremity Exam VASC: DP faintly palpable, PT 2/4 palpable, CFT less than 3 seconds, TG within normal limits, no edema noted NEURO: epicritic and protective sensations intact DERM: varicosities note to bilateral lower extremities, no open lesions, no ecchymosis, no edema, no clinical signs of infection ORTHO: significant pain on palpation to the midshaft of the 2nd and 3rd metatarsals, pain on palpation to the 2nd interspace plantarly, no pain with any ranges of motion, no pain to the digits, no other deformities noted, MSK 5/5 - Neurological Exam Neurological Exam: Alert, Awake, Oriented x3 - Psychiatric Exam Psychiatric exam: Normal Affect, Normal Mood Assessment and Plan - Assessment and Plan (Free Text) Assessment: 83 y/o female patient seen and evaluated for pain to the left foot Plan: Patient seen and evaluated with Dr. Lawrence Plan discussed with attending Chart, labs and vitals were reviewed Ordered Left foot X-ray: no acute fracture or dislocation noted Patient refusing MRI at this time Patient refusing a CamBoot at this time Patient to remain PWB in surgical shoe to the left lower extremity Podiatry will continue to follow patient while in house <Ady Lawrence - Last Filed: 10/14/18 14:35> Objective - Vital Signs/Intake and Output Vital Signs (last 24 hours): Temp Pulse Resp BP Pulse Ox 97.2 F L 61 20 144/70 97 10/14/18 06:00 10/14/18 06:00 10/14/18 06:00 10/14/18 06:00 10/14/18 06:00 Intake and Output: 10/14/18 10/14/18 06:59 18:59 Intake Total 1060 240 Balance 1060 240 - Medications Medications: Current Medications Acetaminophen (Tylenol 325mg Tab) 650 mg PO Q4 PRN PRN Reason: Pain, moderate (4-7) Last Admin: 10/10/18 00:20 Dose: 650 mg Levothyroxine Sodium (Synthroid) 75 mcg PO 0600 JOSE Last Admin: 10/14/18 06:03 Dose: 75 mcg - Labs Labs: 10/09/18 00:50 10/09/18 00:50 Attending/Attestation - Attestation I have personally seen and examined this patient.: Yes I have fully participated in the care of the patient.: Yes I have reviewed all pertinent clinical information, including history, physical exam and plan: Yes
--- NOTE | 2018-10-15 02:11 | DS ---
DISCHARGE SUMMARY: The patient is an 83-year-old female who was admitted through the emergency room on 10/10/2018, with bilateral leg swelling and tenderness. The patient is known to have a history of osteoarthritis, left renal calculus and colon carcinoma 30 years ago, hypothyroidism and is status post cataract surgery. During her hospital stay, studies showed to be negative for deep vein thrombosis in the legs. Chest x-ray showed no acute disease. The patient was started on physical therapy and did well. As a bed became available, arrangements were made for the patient to be transferred to the Transitional Care Unit of the [facility] for continued physical therapy. At home, the patient walks with a Rollator walker when seen in house calls for regular followup visits. The patient has appeared very, very unsteady in her gait. The patient's leg edema has subsided quite a bit during her hospital stay and a bed will be available for transfer to the Transitional Care Unit later on today. FINAL DIAGNOSIS 1. Peripheral edema. 2. Diastolic heart failure, acute on chronic. 3. Hypothyroidism. Dov Lopez MD
== END 2018-10-14 14:51 | DRG 602 ==
LOC: ED 23:46 → ERH 10-09 02:20 → 3RNO 10-09 03:43 → OBSVTOIN 10-10 14:43
PROVIDERS: ADMIT Internal Medicine; ATTEND Internal Medicine
DX: L03.116 Cellulitis of left lower limb (principal); I50.33 Acute on chronic diastolic (congestive) heart failure; E03.9 Hypothyroidism, unspecified; M17.0 Bilateral primary osteoarthritis of knee; I25.2 Old myocardial infarction; Z85.038 Personal history of other malignant neoplasm of large intestine; Z87.01 Personal history of pneumonia (recurrent); Z87.440 Personal history of urinary (tract) infections; Z87.442 Personal history of urinary calculi; Z90.49 Acquired absence of other specified parts of digestive tract; Z88.8 Allergy status to other drugs, medicaments and biological substances; Z87.892 Personal history of anaphylaxis; Z87.09 Personal history of other diseases of the respiratory system; Z98.42 Cataract extraction status, left eye; Z98.41 Cataract extraction status, right eye

== ENCOUNTER 2018-10-14 14:53 | Inpatient (IN) | payer MEDICARE ==
[2018-10-14 14:58] VITALS: BMI 18.8
[2018-10-14] MEDS ORDERED: Pneumococcal 23-Valent Vaccine IM ONE (21:23)
[2018-10-15] MEDS: Levothyroxine 75 MCG TAB PO SCH (05:37)
--- NOTE | 2018-10-15 11:20 | CP.PCM.PN ---
<Pau Barrow - Last Filed: 10/15/18 11:19> Subjective - Date & Time of Evaluation Date of Evaluation: 10/15/18 Time of Evaluation: 11:19 - Subjective Subjective: Podiatry progress note for Drs. Jung/Melinda 83 y/o female patient with PMHx of [place], palpitation, neuropathy, renal stones, hx of colon cancer, and arthritis was seen and evaluated with Dr. Jung due to complaints of left foot pain. Patient states pain started several days ago, however, worsened yesterday. Patient continues to deny an MRI at this time. Patient denies chest pain or shortness of breath. She denies fevers or chills. She denies any recent trauma or injury. No other complaints. Objective - Vital Signs/Intake and Output Vital Signs (last 24 hours): Temp Pulse Resp BP Pulse Ox 98.1 F 60 18 124/67 98 10/14/18 21:08 10/14/18 21:08 10/14/18 21:08 10/14/18 21:08 10/14/18 15:01 - Medications Medications: Current Medications Acetaminophen (Tylenol 325mg Tab) 650 mg PO Q4H PRN; Protocol PRN Reason: Pain, moderate (4-7) Levothyroxine Sodium (Synthroid) 75 mcg PO 0600 JOSE; Protocol Last Admin: 10/15/18 05:37 Dose: 75 mcg - Constitutional Appears: Well, Non-toxic, No Acute Distress - Head Exam Head Exam: ATRAUMATIC, NORMOCEPHALIC - Extremities Exam Additional comments: Left Lower Extremity Exam VASC: DP faintly palpable, PT 2/4 palpable, CFT less than 3 seconds, TG within normal limits, no edema noted NEURO: epicritic and protective sensations intact DERM: varicosities note to bilateral lower extremities, no open lesions, no ecchymosis, no edema, no clinical signs of infection ORTHO: significant pain on palpation to the midshaft of the 2nd and 3rd metatarsals, pain on palpation to the 2nd interspace plantarly, no pain with any ranges of motion, no pain to the digits, no other deformities noted, MSK 5/5 - Neurological Exam Neurological Exam: Alert, Awake, Oriented x3 - Psychiatric Exam Psychiatric exam: Normal Affect, Normal Mood Assessment and Plan - Assessment and Plan (Free Text) Assessment: 83 y/o female patient seen and evaluated for pain to the left foot Plan: Patient seen and evaluated with Dr. Jung Plan discussed with attending Chart, labs and vitals were reviewed Ordered Left foot X-ray: no acute fracture or dislocation noted Patient refusing MRI at this time Patient requesting warm compresses, order placed Patient refusing a CamBoot at this time Patient to remain PWB in surgical shoe to the left lower extremity Podiatry will continue to follow patient while in house <Mary Jung - Last Filed: 10/17/18 20:31> Objective - Vital Signs/Intake and Output Vital Signs (last 24 hours): Temp Pulse Resp BP Pulse Ox 97 F L 54 L 18 174/79 H 100 10/17/18 16:00 10/17/18 16:00 10/17/18 16:00 10/17/18 16:00 10/17/18 16:00 - Medications Medications: Current Medications Acetaminophen (Tylenol 325mg Tab) 650 mg PO Q4H PRN; Protocol PRN Reason: Pain, moderate (4-7) Levothyroxine Sodium (Synthroid) 75 mcg PO 0600 [facility]; Protocol Last Admin: 10/17/18 05:59 Dose: 75 mcg Attending/Attestation - Attestation I have personally seen and examined this patient.: Yes I have fully participated in the care of the patient.: Yes I have reviewed all pertinent clinical information, including history, physical exam and plan: Yes
[2018-10-16] MEDS: Levothyroxine 75 MCG TAB PO SCH (06:09)
--- NOTE | 2018-10-16 12:38 | PN ---
DATE: 10/15/2018 SUBJECTIVE: The patient was seen this evening in room 320, bed 1 of the transitional care unit. She is doing well. It feels good to be here. ASSESSMENT AND PLAN: Looking forward to physical therapy and improved ambulation before discharge to home. I will review her medicines and see her daily as she continues physical therapy exercise and reconditioning. Naresh Lopez MD
--- NOTE | 2018-10-17 05:54 | PN ---
DATE: 10/16/2018 SUBJECTIVE: The patient was seen this good Friday morning in transitional care unit, room 320, bed 1. She is sitting out of bed in the chair. She is awake, alert, clear, and in good spirits. Feeling as she has done well with physical therapy yesterday and looking forward to additional physical therapies over the next few days. PHYSICAL EXAMINATION: GENERAL: Unremarkable and unchanged. LUNGS: Showing good aeration in the right and left. HEART: Regular. Not tachycardic. PLAN: We will continue current course of treatment and aggressive physical therapy for strength, stability and balance for discharge to home. Today is day 2 of her eight-day stay here in transitional care. Naresh Lopez MD
[2018-10-17] MEDS: Levothyroxine 75 MCG TAB PO SCH (05:59)
[2018-10-18] MEDS: Levothyroxine 75 MCG TAB PO SCH (05:35)
[2018-10-18 06:58] LABS: BLOOD UREA NITROGEN 25 mg/dL (7-21); CALCIUM 9.4 mg/dL (8.4-10.5); GFR NON-AFRICAN AMERICAN > 60
[2018-10-18 07:09] LABS: BASO # 0.02 K/mm3 (0.0-2.0); BASO % 0.7 % (0.0-3.0); EOS # 0.2 (0.0-0.7); EOS % 8.2 % (1.5-5.0); HEMOGLOBIN 12.2 g/dL (12.0-16.0); LYMPH % 37.8 % (22.0-35.0); MEAN CELL VOLUME 92.4 fl (80.0-105.0); MEAN CORPUSCULAR HGB CONC 32.5 g/dl (31.0-37.0); MEAN PLATELET VOLUME 9.9 fl (7.0-11.0); MONO # 0.3 (0.1-0.6); MONO % 11.2 % (1.0-6.0); RBC 4.06 10^6/uL (3.5-6.1); WHITE BLOOD COUNT 2.7 10^3/uL (4.5-11.0)
--- NOTE | 2018-10-18 13:32 | PN ---
DATE: 10/17/2018 SUBJECTIVE: The patient was seen this Holy Friday morning in room 320, bed 1. She is sitting in a chair, comfortable, and in good spirits, engaging in physical therapy, eating well, normal bowel movements with no complaints. She feels comfortable with the aggressiveness and the level of physical therapy as well as her improvement and looking forward to continue. Swelling in the legs and cellulitis is improving nicely. PLAN: Continue aggressive physical therapy and home medicines. Naresh Lopez MD
[2018-10-19] MEDS: Levothyroxine 75 MCG TAB PO SCH (05:49)
--- NOTE | 2018-10-19 09:22 | PN ---
DATE: 10/18/2018 The patient was seen this Friday morning in transitional care unit, room 320 bed 1, sitting out of the bed in chair, awake, alert and clear. Engaging in the activities of the unit and will be followed per her family (her son) to come visit her later today. We will continue physical therapy. Dr. Dobbs will be back to see her tomorrow and work further on discharge plans. Naresh Lopez MD
[2018-10-20] MEDS: Levothyroxine 75 MCG TAB PO SCH (05:31)
--- NOTE | 2018-10-20 08:25 | PN ---
DATE: 10/19/2018 SUBJECTIVE: The patient is an 83-year-old female who is admitted through the emergency room on 10/10/2018 with bilateral leg swelling and tenderness. The patient had a history of osteoarthritis, left renal calculus, colon carcinoma many years ago and hypothyroidism. She is also status post cataract surgery. The testing showed the patient to be negative for deep vein thrombosis in the legs. She had no acute disease on chest x-ray. After 3 days on the medical floor, the patient was transferred to the Transitional Care Unit for physical therapy on 10/14/2014. On physical therapy, the patient is doing well. When seen today, she voices no complaints. She is sitting up in a chair. She denies any chest pain, palpitations, respiratory distress. On physical therapy, she is ambulating more than 300 feet with a rollator walker. So, we are continuing this physical therapy for this patient and today is day #5 on the Transitional Care Unit. After 7-8 days, the patient will be discharged to home. Dov Lopez MD
[2018-10-21] MEDS: Levothyroxine 75 MCG TAB PO SCH (05:41)
[2018-10-21 17:26] VITALS: PULSE 60
--- NOTE | 2018-10-21 17:46 | PN ---
DATE: 10/21/2018 SUBJECTIVE: The patient is an 83-year-old female with a history of osteoarthritis, left urethral calculus, colon carcinoma, hypothyroidism, status post cataract surgery, who was admitted through the emergency room on the 10/10/2018 with bilateral leg swelling and tenderness. The patient was tested negative for deep vein thrombosis. No acute disease on chest x-ray and after 3 days, the patient was transferred to the transitional care unit for physical therapy on 10/14/2018. The patient is doing very well on physical therapy. She is actually asking to receive more physical therapy. As per the nursing staff, she freely ambulates up and down the halls on her own. At home, she gets around with a rollator walker. The patient's stay on the TCU has been extended and her discharge date is rescheduled for tomorrow. We will continue to follow the patient closely post-discharge. FINAL DIAGNOSES: 1. Cellulitis of the leg. 2. Pedal edema. 3. Osteoarthritis. 4. Hypothyroidism. Dov Lopez MD MTDL[facility]ont
[2018-10-22] MEDS: Levothyroxine 75 MCG TAB PO SCH (05:08)
[2018-10-22 16:23] VITALS: BP 154/71; RESP 16; TEMP 98; O2SAT 99
--- NOTE | 2018-10-24 03:05 | DS ---
HISTORY OF PRESENT ILLNESS: This is an 83-year-old woman seen by Dr. Dov oLpez on a regular basis in the office. She developed some weakness and cellulitis on the lower extremities, came to the acute care facility for treatment, antibiotics and then comes to Transitional Care for additional physical therapy and . This is the discharge summary for the patient's stay in transitional care. While in TCU, the patient engage in the activities of the unit with ambulating first with a walker, then came by herself. She did well. Appetite was well. Vital signs were well controlled and she was ready for discharge to home where her son will follow her closely. FINAL DISCHARGE DIAGNOSES: 1. Deconditioning. 2. Osteoarthritis. Naresh Lopez MD
== END 2018-10-22 19:30 | disposition home or self-care (01) | DRG 603 ==
LOC: TRCU 14:53
PROVIDERS: ADMIT Internal Medicine; ATTEND Internal Medicine
PROC: F07Z9FZ Gait Training/Functional Ambulation Treatment using Assistive, Adaptive, Supportive or Protective Equipment (ICD-10-PCS; principal; 2018-10-15)
PROC: F08Z4FZ Home Management Treatment using Assistive, Adaptive, Supportive or Protective Equipment (ICD-10-PCS; 2018-10-15)
DX: L03.116 Cellulitis of left lower limb (principal); L03.115 Cellulitis of right lower limb; M79.672 Pain in left foot; E03.9 Hypothyroidism, unspecified; G62.9 Polyneuropathy, unspecified; M79.89 Other specified soft tissue disorders; M19.90 Unspecified osteoarthritis, unspecified site; Z85.038 Personal history of other malignant neoplasm of large intestine; Z87.442 Personal history of urinary calculi; I25.2 Old myocardial infarction

== ENCOUNTER 2018-10-25 14:24 | Emergency (ER) | payer MEDICARE ==
[2018-10-25 14:24] VITALS: BMI 18.8
[2018-10-25 14:38] VITALS: TEMP 98.4
[2018-10-25] MEDS ORDERED: Naproxen 550 mg Tab PO STA (14:47)
--- NOTE | 2018-10-25 15:04 | ED PDOC ---
Arrival/HPI - General Chief Complaint: Back Pain Time Seen by Provider: 10/25/18 14:33 Historian: Patient, Family (son) - History of Present Illness Narrative History of Present Illness (Text): 10/25/18 15:05 A 83 year old female, whose past medical history includes asthma, pneumonia, left kidney stone, who is accompanied by son, presents to the emergency department complaining of lower back pain s/p fall last night. Per son, patient uses a walker to ambulate. Patient states she lost her balance last night and hit her back into her dresser and fell backwards. Patient denies any head trauma, LOC, or any other complaints at this time. Also, patient's son mentions patient stopped taking Gabapentin due to last visit when she had bilateral leg edema. PMD: Dr. Dov Lopez Time/Duration: Other (last night) Past Medical History - Provider Review Nursing Documentation Reviewed: Yes - Infectious Disease Hx of Infectious Diseases: None - Tetanus Immunization Tetanus Immunization: Unknown - Reproductive Menopause: Yes - Cardiac Hx Cardiac Disorders: Yes ([place]) - Pulmonary Hx Respiratory Disorders: Yes Hx Asthma: Yes Hx Pneumonia: Yes - Neurological Hx Neurological Disorder: Yes (NEUROPATHY) - HEENT Hx HEENT Disorder: Yes Hx Cataracts: Yes (2011 BILATERAL SURGERY) - Renal Hx Renal Disorder: Yes Hx Kidney Stones: Yes (LEFT KIDNEY STONES) - Endocrine/Metabolic Hx Hypothyroidism: Yes - Hematological/Oncological Hx Blood Disorders: Yes Hx Anemia: Yes Hx Cancer: Yes (COLON CA 30YEARS AGO) Hx Chemotherapy: No - Integumentary Hx Dermatological Disorder: No - Musculoskeletal/Rheumatological Hx Arthritis: Yes (Knee Arthritis; OA) - Gastrointestinal Hx Gastrointestinal Disorders: Yes (COLON CA,POOR APPETITE ON SUPPLEMENT ENSURE DAILY.) - Genitourinary/Gynecological Hx Genitourinary Disorders: Yes (UTI) Hx Reproductive Disorders: No - Psychiatric Hx Psychophysiologic Disorder: Yes Hx Anxiety: Yes Hx Depression: Yes Hx Substance Use: No - Surgical History Hx Appendectomy: Yes Hx Cardiac Catheterization: No (DENIES) Other/Comment: Hx of - Anesthesia Hx Anesthesia: Yes Hx Anesthesia Reactions: No Hx Malignant Hyperthermia: No - Suicidal Assessment Feels Threatened In Home Enviroment: No Family/Social History - Physician Review Nursing Documentation Reviewed: Yes Family/Social History: No Known Family HX Smoking Status: Never Smoked Hx Alcohol Use: No Hx Substance Use: No Hx Substance Use Treatment: No Allergies/Home Meds Allergies/Adverse Reactions: Allergies diltiazem Allergy (Verified 10/25/18 14:38) ANAPHYLAXIS metoprolol Allergy (Verified 10/25/18 14:38) ANAPHYLAXIS Home Medications: Home Meds Medication Instructions Recorded Confirmed Levothyroxine Sodium 0.075 mg PO DAILY 02/19/12 10/25/18 Aspirin [Aspirin Chewable] 81 mg PO QOTHERDAY 12/18/16 10/25/18 Gabapentin [Neurontin] 1 cap PO BID 03/24/17 10/25/18 Review of Systems - Physician Review All systems were reviewed & negative as marked: Yes - Review of Systems Constitutional: absent: Other (no head trauma) Musculoskeletal: Back Pain (s/p fall) Neurological: absent: Other (no LOC) Physical Exam Vital Signs Reviewed: Yes Vital Signs Temp Pulse Resp BP Pulse Ox 10/25/18 14:31 98.4 F 85 19 153/72 H 98 Temperature: Afebrile Blood Pressure: Normal Pulse: Regular Respiratory Rate: Normal Appearance: Positive for: Well-Appearing, Non-Toxic, Comfortable Pain Distress: None Mental Status: Positive for: Alert and Oriented X 3 - Systems Exam Head: Present: Atraumatic, Normocephalic Pupils: Present: PERRL Extroacular Muscles: Present: EOMI Conjunctiva: Present: Normal Mouth: Present: Moist Mucous Membranes Neck: Present: Normal Range of Motion Respiratory/Chest: Present: Clear to Auscultation, Good Air Exchange. No: Respiratory Distress, Accessory Muscle Use Cardiovascular: Present: Regular Rate and Rhythm, Normal S1, S2. No: Murmurs Abdomen: No: Tenderness, Distention, Peritoneal Signs Back: Present: Other (small contusion left posterior ribs and tenderness) Upper Extremity: Present: Normal Inspection. No: Cyanosis, Edema Lower Extremity: Present: Normal Inspection. No: Edema Neurological: Present: GCS=15, CN II-XII Intact, Speech Normal Skin: Present: Warm, Dry, Normal Color. No: Rashes Psychiatric: Present: Alert, Oriented x 3, Normal Insight, Normal Concentration Medical Decision Making ED Course and Treatment: 10/25/18 15:06 Impression: 83 year old female with lower back pain s/p fall last night. Physical exam shows small contusion left posterior ribs and tenderness. Plan: -- Thoracic Spinal X-Ray -- Right Ribs & Chest X-Ray -- Naproxen -- Reassess and disposition Prior Visits: Notes and results from previous visits were reviewed. Patient was last seen in the emergency department on 10/09/2018 for bilateral leg pain/swelling (left>right). Patient was admitted. Progress Notes: 10/25/2018 15:00 Thoracic Spinal X-Ray IMPRESSION: Multilevel loss of vertebral body height, age indeterminate. Multilevel degenerative changes. Dictator: Carlos Heller MD 10/25/2018 15:00 Right Ribs & Chest X-Ray IMPRESSION: Unremarkable radiographs of the chest and right ribs. No right rib fracture. Dictator: Carlos Heller MD 10/25/18 18:02 fall from standing to right lower posterior costal margin. xr neg for fx. no abd ttp. no ruq ttp. no flank ttp. no hematuria. ambulatory steady gait. asking for dc. declines overnight obs (offered as pt lives by herself) - RAD Interpretation Radiology Orders: 10/25/18 14:47 RIBS RIGHT & PA CHEST [RAD] Stat 10/25/18 14:48 DORSAL (THORACIC) SPINE [RAD] Stat - Medication Orders Current Medication Orders: Discontinued Medications Naproxen (Anaprox Ds) 550 mg PO STAT STA Stop: 10/25/18 14:48 - Scribe Statement The provider has reviewed the documentation as recorded by the Seda Lim Provider Scribe Attestation: All medical record entries made by the Scribe were at my direction and personally dictated by me. I have reviewed the chart and agree that the record accurately reflects my personal performance of the history, physical exam, medical decision making, and the department course for this patient. I have also personally directed, reviewed, and agree with the discharge instructions and disposition. Disposition/Present on Arrival - Present on Arrival Any Indicators Present on Arrival: No History of DVT/PE: No History of Uncontrolled Diabetes: No Urinary Catheter: No History of Decub. Ulcer: No History Surgical Site Infection Following: None - Disposition Have Diagnosis and Disposition been Completed?: Yes Diagnosis: Fall, Back pain, Rib contusion Disposition: HOME/ ROUTINE Disposition Time: 16:00 Condition: STABLE Discharge Instructions (ExitCare): Contusion (DC), Getting Up From a Fall, Bruised Rib (DC) Additional Instructions: return to er with worsening symptoms or concerns. Prescriptions: Naproxen 500 mg PO BID PRN #14 tab PRN Reason: Pain, Mild (1-3) Forms: [employer] (E[place]ian)
[2018-10-25 16:00] VITALS: BP 130/72; PULSE 60; RESP 16; O2SAT 100
--- NOTE | 2018-10-25 16:04 | RAD ---
Date of service: 10/25/2018 HISTORY: trauma COMPARISON: No prior. TECHNIQUE: 2 views obtained. FINDINGS: BONES: Thoracic kyphosis. Multilevel loss of vertebral body height, age indeterminate. DISC SPACES: Multilevel disc space narrowing. SOFT TISSUES: Normal. OTHER FINDINGS: None. IMPRESSION: Multilevel loss of vertebral body height, age indeterminate. Multilevel degenerative changes
--- NOTE | 2018-10-25 16:06 | RAD ---
Date of service: Chest radiograph dated 10/09/2018 10/25/2018 PROCEDURE: Radiographs of the Chest and Right Ribs. HISTORY: trauma COMPARISON: None available. TECHNIQUE: Frontal radiograph of the chest and multiple oblique radiographs of the right ribs were obtained. 4 views obtained. FINDINGS: RIGHT RIBS: No fracture or focal lesion visualized. LUNGS: Clear. PLEURA: No pneumothorax or pleural fluid. CARDIOVASCULAR: Aortic atherosclerotic calcifications. Cardiomediastinal silhouette stably enlarged. OTHER FINDINGS: None. IMPRESSION: Unremarkable radiographs of the chest and right ribs. No right rib fracture.
== END 2018-10-25 16:50 | disposition home or self-care (01) ==
LOC: ED 14:24
DX: S20.219A Contusion of unspecified front wall of thorax, initial encounter (principal); M54.5 Low back pain; W01.190A Fall on same level from slipping, tripping and stumbling with subsequent striking against furniture, initial encounter; Y92.009 Unspecified place in unspecified non-institutional (private) residence as the place of occurrence of the external cause